=== PATIENT | female | born 1955 | race Caucasian/White ===

== ENCOUNTER 2017-04-13 21:03 | Inpatient (IN) | payer BC ==
[2017-04-13] MEDS ORDERED: HYDROmorphone 1 MG/ML Syringe IM ONE (21:29)
[2017-04-13] MEDS ORDERED: LORazepam 2 MG/ML MDV IVPUSH ONE (21:30)
--- NOTE | 2017-04-13 21:36 | EDM.PDOC ---
ED HPI GENERAL MEDICAL PROBLEM - General Chief Complaint: Lower Extremity Injury/Pain Stated Complaint: FALL/PAIN LT HIP Time Seen by Provider: 04/13/17 21:13 Source of Information: Reports: Patient History Limitations: Reports: No Limitations - History of Present Illness INITIAL COMMENTS - FREE TEXT/NARRATIVE: HISTORY AND PHYSICAL: History of present illness: [62-year-old female with past medical history of psoriasis no other medical problems now in the emergency department for evaluation of a left hip injury. Patient states she was walking and somehow she lost her balance. She fell the ground and injured her left hip. She is unable to range of motion her left leg because of pain. Denies headache injury neck pain chest injury or abdominal pain. No complaint regarding her right lower extremity and bilateral upper extremities. Review of systems: As per history of present illness and below otherwise all systems reviewed and negative. Past medical history: As per history of present illness and as reviewed below otherwise noncontributory. Surgical history: As per history of present illness and as reviewed below otherwise noncontributory. Social history: No reported history of drug or alcohol abuse. Family history: As per history of present illness and as reviewed below otherwise noncontributory. Physical exam: Anxious appearing older middle-aged female with left knee and hip flexed unwilling range of motion left leg. Tenderness of left hip distribution. Soft compartments neurovascularly intact distally. Nonfocal neurologic exam. Normocephalic/atraumatic nontender C-spine with normal painless range of motion. No chest wall tenderness. No spinal tenderness. Extremity bilateral upper STEMI's are negative. HEENT: Atraumatic, normocephalic, pupils reactive, negative for conjunctival pallor or scleral icterus, mucous membranes moist, throat clear, neck supple, nontender, trachea midline. Lungs: Clear to auscultation, breath sounds equal bilaterally, chest nontender. Heart: S1S2, regular, negative for clicks, rubs, or JVD. Abdomen: Soft, nondistended, nontender. Negative for masses or hepatosplenomegaly. Negative for costovertebral tenderness. Pelvis: Stable nontender. Genitourinary: Deferred. Rectal: Deferred. Extremities: Atraumatic, negative for cords or calf pain. Neurovascular unremarkable. Neuro: Awake, alert, oriented. Cranial nerves grossly unremarkable. Motor and sensory unremarkable throughout. Exam nonfocal. Diagnostics: [X-rays left hip and pelvis pending] X-ray left hip with femoral neck fracture. X-ray pelvis with no fracture of the pelvis but also visualizing left femoral neck fracture. Both interpreted by me Therapeutics: Dilaudid and Ativan administered for pain control and treatment of anxiety respectively Impression: [Left hip pain] Left hip fracture Plan: [Signs and symptoms consistent with left hip versus left femur fracture less likely pelvis injury. Analgesia and anxiolysis administered. Patient will be kept nothing by mouth. Will follow to ensure clinically effective pain control. X-rays pending] Definitive disposition and diagnosis as appropriate pending reevaluation and review of above. 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 History: Reports: None Neurological History: Reports: None Psychiatric History: Reports: None Endocrine/Metabolic History: Reports: None Hematologic History: Reports: None Immunologic History: Reports: None Oncologic (Cancer) History: Reports: None Dermatologic History: Reports: Psoriasis - Infectious Disease History Infectious Disease History: Reports: Chicken Pox, Measles, Mumps - Past Surgical History Head Surgeries/Procedures: Reports: None GI Surgical History: Reports: Cholecystectomy Female Surgical History: Reports: Hysterectomy Social & Family History - Family History Family Medical History: Noncontributory - Tobacco Use Smoking Status *Q: Never Smoker - Caffeine Use Caffeine Use: Reports: Coffee, Tea - Recreational Drug Use Recreational Drug Use: No Review of Systems - Review of Systems Review Of Systems: See Below (History of present illness) ED EXAM, GENERAL - Physical Exam Exam: See Below (History of present illness) Course - Vital Signs Last Recorded V/S: Last Vital Signs Temp 36.5 C 04/14/17 00:16 Pulse 80 04/14/17 00:16 Resp 16 04/14/17 00:16 BP 130/85 04/14/17 00:16 Pulse Ox 98 08/04/17 00:16 - Orders/Labs/Meds Orders: Active Orders 24 hr Category Date Time Status Hip Min 2V or 3V Lt [CR] Stat Exams 04/13/17 21:30 Taken Pelvis 1V or 2V [CR] Stat Exams 04/13/17 21:30 Ordered Meds: Medications Discontinued Medications Generic Name Dose Route Start Last Admin Trade Name Gastonq PRN Reason Stop Dose Admin Hydromorphone HCl 1 mg 04/13/17 21:29 04/13/17 22:25 Dilaudid IM 04/13/17 21:30 Not Given ONETIME ONE Hydromorphone HCl 1 mg 04/13/17 22:12 04/14/17 00:14 Dilaudid IVPUSH 04/13/17 22:13 1 mg ONETIME ONE Administration Hydromorphone HCl 1 mg 04/14/17 00:00 04/14/17 00:14 Dilaudid IVPUSH 04/14/17 00:01 Not Given ONETIME ONE Lorazepam 0.5 mg 04/13/17 21:30 04/13/17 22:03 Ativan IVPUSH 04/13/17 21:31 0.5 mg ONETIME ONE Administration Departure - Departure Time of Disposition: 00:30 Disposition: Admitted As Inpatient 65 Condition: Fair Clinical Impression: Closed left hip fracture - Discharge Information - My Orders Last 24 Hours: My Active Orders 04/13/17 21:30 Hip Min 2V or 3V Lt [CR] Stat Pelvis 1V or 2V [CR] Stat - Assessment/Plan Last 24 Hours: My Active Orders 04/13/17 21:30 Hip Min 2V or 3V Lt [CR] Stat Pelvis 1V or 2V [CR] Stat
[2017-04-13] MEDS: HYDROmorphone 1 MG/ML Syringe IVPUSH ONE (22:24)
[2017-04-14] MEDS: HYDROmorphone 1 MG/ML Syringe IVPUSH ONE (00:14)
--- NOTE | 2017-04-14 00:49 | PCM.CONS ---
H&P History of Present Illness - General Date of Service: 04/14/17 Admit Problem/Dx: Admission Diagnosis/Problem Admission Diagnosis/Problem Hip fracture requiring operative repair Source of Information: Patient, Family History Limitations: Reports: No Limitations - History of Present Illness Initial Comments - Free Text/Narative: 62 y/o female who tripped on curb coming out of restaurant earlier tonight. States she fell on left hip. C/o immediate pain and inability to WB. Denies other injuries, LOC. No previous h/o left hip pain. XR in ER show displaced left femoral neck fracture. Ortho consult obtained. Denies distal paralysis, paresthesias. Onset of Symptoms: Reports: Today Quality: Reports: Sharp Improves with: Reports: Immobilization Worsens with: Reports: Movement Associated Symptoms: Reports: No Other Symptoms left upper leg/hip Pain Score (Numeric/FACES): 10 - Related Data Allergies/Adverse Reactions: Allergies Allergy/AdvReac Type Severity Reaction Status Date / Time erythromycin base Allergy Shortness Verified 04/14/17 00:12 of Breath Penicillins Allergy Other Verified 04/13/17 21:24 Home Medications: Home Meds Ustekinumab [Stelara] 04/14/17 [History] Past Medical History HEENT History: Reports: None Cardiovascular History: Reports: None Respiratory History: Reports: None Gastrointestinal History: Reports: None Genitourinary History: Reports: None 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: Musculoskeletal History: Reports: None Neurological History: Reports: None Psychiatric History: Reports: None Endocrine/Metabolic History: Reports: None Hematologic History: Reports: None Immunologic History: Reports: None Oncologic (Cancer) History: Reports: None Dermatologic History: Reports: Psoriasis - Infectious Disease History Infectious Disease History: Reports: Chicken Pox, Measles, Mumps - Past Surgical History Head Surgeries/Procedures: Reports: None GI Surgical History: Reports: Cholecystectomy Female Surgical History: Reports: Hysterectomy Musculoskeletal Surgical History: Reports: Other (See Below) (Bunion surgery) Social & Family History - Family History Family Medical History: Noncontributory - Tobacco Use Smoking Status *Q: Never Smoker - Caffeine Use Caffeine Use: Reports: Coffee, Tea - Alcohol Use Alcohol Use History: Yes Alcohol Use Frequency: Socially - Recreational Drug Use Recreational Drug Use: No H&P Review of Systems - Review of Systems: Review Of Systems: See Below General: Reports: No Symptoms HEENT: Reports: No Symptoms Pulmonary: Reports: No Symptoms Cardiovascular: Reports: No Symptoms Gastrointestinal: Reports: No Symptoms Genitourinary: Reports: No Symptoms Musculoskeletal: Reports: Joint Pain Skin: Reports: No Symptoms Psychiatric: Reports: No Symptoms Neurological: Reports: No Symptoms Hematologic/Lymphatic: Reports: No Symptoms Immunologic: Reports: No Symptoms Exam - Exam Exam: See Below - Vital Signs Vital Signs: Last Vital Signs Temp 97.7 F 04/14/17 00:16 Pulse 80 04/14/17 00:16 Resp 16 04/14/17 00:16 BP 130/85 04/14/17 00:16 Pulse Ox 98 04/14/17 00:16 Weight: 65.771 kg - Exam General: Alert, Oriented, 4 HEENT: Conjunctiva Clear, Hearing Intact, Nares Patent Neck: Supple, Trachea Midline, 2 Lungs: Normal Respiratory Effort Cardiovascular: Regular Rate GI/Abdominal Exam: Soft Peripheral Pulses: 2+: Posterior Tibial (L), Posterior Tibial (R), Dorsalis Pedis (L), Dorsalis Pedis (R) Skin: Warm, Dry, Intact Neuro Extensive - Mental Status: Alert, Oriented x3, Normal Mood/Affect, Normal Cognition Psychiatric: Alert, Normal Affect, Normal Mood Physical Exam Comments:: Exam of LLE shows it to be shortened and ER. C/o pain with movement of hip. No TTP around knee or ankle. AT/EHL/gastroc 5/5. Sensation intact. DP 2+. - Patient Data Imaging Impressions Last 24 hrs: Xray of pelvis/left hip reviewed. Shows displaced fracture of left femoral neck. Consult PN Assessment/Plan Problem List Initiated/Reviewed/Updated: Yes Plan: 1. Admit to hospitalist service for preop evaluation 2. recommend L hip hemiarthroplasty: Procedure and postoperative course d/w patient. Risks of procedure d/w patient which includes, but not limited to, infection, n/v injury, blood clots, dislocation, need for future surgery, transfusion, and anesthetic complications. Patient agrees to proceed. Will plan to do Monday. 3. patient originally from [place], here on vacation in . Plans to travel to [place] after discharge.
[2017-04-14] MEDS ORDERED: Morphine 2 MG/ML Syringe ONE (00:50)
[2017-04-14] MEDS ORDERED: Clindamycin Phosphate in D5W 600 MG in Premix Bag 50 BAG IV ONE ×4 (01:30→13:00)
[2017-04-14] MEDS: Lactated Ringers 1,000 ML IV SCH ×3 (01:49→23:48)
[2017-04-14 01:52] LABS: CHLORIDE,CL 104 mmol/L (98-110); SODIUM,NA 139 mmol/L (136-146)
[2017-04-14] MEDS: Morphine 4 MG/ML Syringe IVPUSH PRN ×4 (01:53→15:09)
--- NOTE | 2017-04-14 03:16 | PCM.HP ---
H&P History of Present Illness - General Date of Service: 04/14/17 Admit Problem/Dx: Admission Diagnosis/Problem Admission Diagnosis/Problem Hip fracture requiring operative repair Source of Information: Patient - History of Present Illness Initial Comments - Free Text/Narative: 62 year old female left a restaurant tonight, and when walking, came on a transition from gravel to sidewalk. Her left foot was hung up in the crevice where the concrete began, and it tripped her. She was unable to stand and was brought to the ER where she was found to have a left hip fracture. She has a history of taking Fosamax from 1996 to 2006 when she was taken off of it when the danger of bone brittleness from extended use was being discovered. She has a history of using Stelara for psoriasis, which is an immunosuppressant, and her last dose was in December and her next dose is due in June. Aside from the psoriasis, she has been healthy and physically active. She has travelled here from [place] to visit [facility] while on her way with her to her daughter's home in [place] where they are supposed to care for her grandson while her daughter is gone on a trip. Onset of Symptoms: Reports: Today, Sudden Location: Reports: Lower Extremity, Left Quality: Reports: Sharp, Stabbing Severity: Severe Improves with: Reports: Rest Worsens with: Reports: Movement Associated Symptoms: Reports: No Other Symptoms left upper leg/hip Pain Score (Numeric/FACES): 8 - Related Data Allergies/Adverse Reactions: Allergies Allergy/AdvReac Type Severity Reaction Status Date / Time erythromycin base Allergy Shortness Verified 04/14/17 00:12 of Breath Penicillins Allergy Other Verified 04/13/17 21:24 Home Medications: Home Meds Ustekinumab [Stelara] 04/14/17 [History] Past Medical History HEENT History: Reports: Impaired Vision Cardiovascular History: Reports: None Respiratory History: Reports: None Gastrointestinal History: Reports: Cholelithiasis Genitourinary History: Reports: None 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: Musculoskeletal History: Reports: Osteoporosis Neurological History: Reports: None Psychiatric History: Reports: None Endocrine/Metabolic History: Reports: Other (See Below) (Prediabetes) Hematologic History: Reports: None Immunologic History: Reports: Immunosuppression, Other (See Below) (On Stelara, an interleukin 12 and 23 antagonist.) Oncologic (Cancer) History: Reports: None Dermatologic History: Reports: Psoriasis - Infectious Disease History Infectious Disease History: Reports: Chicken Pox, Measles, Mumps - Past Surgical History Head Surgeries/Procedures: Reports: None GI Surgical History: Reports: Cholecystectomy, Colostomy, EGD Female Surgical History: Reports: Hysterectomy Musculoskeletal Surgical History: Reports: Other (See Below) Dermatological Surgical History: Reports: None Social & Family History - Family History Family Medical History: Noncontributory - Tobacco Use Smoking Status *Q: Never Smoker Second Hand Smoke Exposure: No - Caffeine Use Caffeine Use: Reports: Coffee, Tea - Alcohol Use Alcohol Use History: Yes Days Per Week of Alcohol Use: 7 Number of Drinks Per Day: 1 Total Drinks Per Week: 7 Date of Last Drink: 04/13/17 Time of Last Drink: 19:30 - Recreational Drug Use Recreational Drug Use: No - Living Situation & Occupation Living situation: Reports: , with Spouse Occupation: Retired Social History Comment: Lives in [facility], [place] of [place] H&P Review of Systems - Review of Systems: Review Of Systems: See Below General: Reports: No Symptoms HEENT: Reports: No Symptoms Pulmonary: Reports: No Symptoms Cardiovascular: Reports: No Symptoms Gastrointestinal: Reports: No Symptoms Genitourinary: Reports: No Symptoms Musculoskeletal: Reports: Other (Left hip pain) Skin: Reports: No Symptoms, Other (History of psoriasis with good response to Stelara) Psychiatric: Reports: No Symptoms Neurological: Reports: No Symptoms Hematologic/Lymphatic: Reports: No Symptoms Immunologic: Reports: No Symptoms Exam - Exam Exam: See Below - Vital Signs Vital Signs: Last Vital Signs Temp 36.2 C 04/14/17 01:20 Pulse 93 04/14/17 01:20 Resp 18 04/14/17 01:20 BP 186/85 H 04/14/17 01:20 Pulse Ox 99 04/14/17 01:20 Weight: 66.5 kg - Exam General: Alert, Oriented HEENT: Conjunctiva Clear, EACs Clear, EOMI, Hearing Intact, Mucosa Moist & [place] , Nares Patent, Normal Nasal Septum, Posterior Pharynx Clear, Pupils Equal, Pupils Reactive Neck: Supple, Trachea Midline Lungs: Clear to Auscultation, Normal Respiratory Effort Cardiovascular: Regular Rate, Regular Rhythm, Normal S1, Normal S2 GI/Abdominal Exam: Normal Bowel Sounds, Soft, Non-Tender, No Organomegaly, No Distention, No Mass, Pelvis Stable Back Exam: Normal Inspection Extremities: No Pedal Edema, Normal Capillary Refill, Leg Pain, Other (Left foot turns in, abnormally. Left hip very tender. Normal PT and DP pulses bilaterally) Peripheral Pulses: 2+: Posterior Tibial (L), Posterior Tibial (R), Dorsalis Pedis (L), Dorsalis Pedis (R) Skin: Warm, Dry, Intact Neurological: Cranial Nerves Intact, Normal Speech, Normal Tone. No: Focal Deficit Neuro Extensive - Mental Status: Alert, Oriented x3, Normal Mood/Affect, Normal Cognition, Memory Intact - Patient Data Lab Results Last 24 hrs: Laboratory Results - last 24 hr 04/14/17 04/14/17 04/14/17 Range/Units 01:24 01:24 01:24 WBC 17.05 H (4.0-11.0) K/uL RBC 4.83 (4.30-5.90) M/uL Hgb 14.5 (12.0-16.0) g/dL Hct 42.5 (36.0-46.0) % MCV 88.0 (80.0-98.0) fL MCH 30.0 (27.0-32.0) pg MCHC 34.1 (31.0-37.0) g/dL RDW Std Deviation 43.1 (28.0-62.0) fl RDW Coeff of Lachelle 14 (11.0-15.0) % Plt Count 238 (150-400) K/uL MPV 9.50 (7.40-12.00) fL Add Manual Diff YES Neutrophils % (Manual) 68 (48.0-80.0) % Band Neutrophils % 6 % Lymphocytes % (Manual) 23 (16.0-40.0) % Monocytes % (Manual) 3 (0.0-15.0) % Nucleated RBC % 0.0 /100WBC Absolute Seg Neuts 11.6 Band Neutrophils # 1.0 Lymphocytes # (Manual) 3.9 Monocytes # (Manual) 0.5 Nucleated RBCs # 0 K/uL INR 0.98 (0.86-1.11) Sodium (136-146) mmol/L Potassium (3.5-5.1) mmol/L Chloride (98-110) mmol/L Carbon Dioxide (21-31) mmol/L BUN (6.0-23.0) mg/dL Creatinine (0.6-1.5) mg/dL Est Cr Clr Drug Dosing mL/min Estimated GFR (MDRD) ml/min Glucose (60-110) mg/dL Calcium (8.8-10.8) mg/dL Blood Type A POSITIVE Antibody Screen NEGATIVE 04/14/17 Range/Units 01:24 WBC (4.0-11.0) K/uL RBC (4.30-5.90) M/uL Hgb (12.0-16.0) g/dL Hct (36.0-46.0) % MCV (80.0-98.0) fL MCH (27.0-32.0) pg MCHC (31.0-37.0) g/dL RDW Std Deviation (28.0-62.0) fl RDW Coeff of Lachelle (11.0-15.0) % Plt Count (150-400) K/uL MPV (7.40-12.00) fL Add Manual Diff Neutrophils % (Manual) (48.0-80.0) % Band Neutrophils % % Lymphocytes % (Manual) (16.0-40.0) % Monocytes % (Manual) (0.0-15.0) % Nucleated RBC % /100WBC Absolute Seg Neuts Band Neutrophils # Lymphocytes # (Manual) Monocytes # (Manual) Nucleated RBCs # K/uL INR (0.86-1.11) Sodium 139 (136-146) mmol/L Potassium 3.8 (3.5-5.1) mmol/L Chloride 104 (98-110) mmol/L Carbon Dioxide 24 (21-31) mmol/L BUN 13 (6.0-23.0) mg/dL Creatinine 0.8 (0.6-1.5) mg/dL Est Cr Clr Drug Dosing 62.15 mL/min Estimated GFR (MDRD) > 60.0 ml/min Glucose 125 H (60-110) mg/dL Calcium 9.2 (8.8-10.8) mg/dL Blood Type Antibody Screen Result Diagrams: 04/14/17 01:24 04/14/17 01:24 EKG INTERPRETATION EKG Date: 04/14/17 Rhythm: NSR [place]: Normal P-Wave: Present QRS: Normal ST-T: Normal QT: Normal Comparison: NA - No Prior EKG EKG Interpretation Comments: Normal sinus rhythm with no ST changes *Q Meaningful Use (ADM) - VTE *Q VTE Criteria *Q: - Stroke *Q Stroke Criteria *Q: - AMI *Q AMI Criteria *Q: - Problem List (1) Immunosuppressed due to chemotherapy SNOMED Code(s): 623321252 ICD Code: Z79.899 - OTHER SHELTER (CURRENT) DRUG THERAPY Status: Acute Priority: Medium Current Visit: Yes (2) Elevated WBC count SNOMED Code(s): 775728201, 097907418 ICD Code: D72.829 - ELEVATED WHITE BLOOD CELL COUNT, UNSPECIFIED Status: Acute Priority: Medium Current Visit: Yes Qualifiers: Leukocytosis type: leukemoid reaction Qualified Code(s): D72.823 - Leukemoid reaction (3) Closed left hip fracture SNOMED Code(s): 019371739 ICD Code: S72.002A - FRACTURE OF UNSP PART OF NECK OF LEFT FEMUR, INIT Status: Acute Priority: High Current Visit: Yes Onset Date: ~04/13/17 Qualifiers: Encounter type: initial encounter Qualified Code(s): S72.002A - Fracture of unspecified part of neck of left femur, initial encounter for closed fracture Problem List Initiated/Reviewed/Updated: Yes Orders Last 24hrs: Active Orders 24 hr Category Date Time Status Antiembolic Devices [RC] PER UNIT ROUTINE Care 04/14/17 00:56 Active Communication Order [RC] ROUTINE Care 04/14/17 00:54 Active Communication Order [RC] ROUTINE Care 04/14/17 00:56 Active Communication Order [RC] ROUTINE Care 04/14/17 01:19 Active EKG 12 Lead [EKG Documentation Completion] [RC] ROUTINE Care 04/14/17 00:55 Active Jara Catheter Insertion [Insert Urinary Catheter] [OM. Care 04/14/17 01:00 Ordered PC] Q24H Intake and Output [RC] Q12H Care 04/14/17 00:54 Active Oxygen Therapy [RC] PRN Care 04/14/17 00:52 Active Urinary Catheter Assessment [RC] Q4H Care 04/14/17 01:00 Active Vital Signs [RC] Q4H Care 04/14/17 00:50 Active Nothing per Oral Now Diet [DIET] Diet 04/14/17 Breakfast Active Chest 1V Frontal [CR] Routine Exams 04/14/17 00:58 Ordered CBC WITH MANUAL DIFF [HEME] Routine Lab 04/14/17 06:00 Ordered Clindamycin Phosphate in D5W [Cleocin in D5W] 600 mg Med 04/14/17 13:00 Active Premix Bag 50 bag IV ONCALL Lactated Ringers [Ringers, Lactated] 1,000 ml Med 04/14/17 01:00 Active IV ASDIRECTED Morphine Med 04/14/17 00:52 Active 1 - 3 mg IVPUSH Q3H PRN Ondansetron [Zofran] Med 04/14/17 00:52 Active 4 mg IVPUSH Q8H PRN Antiembolic Hose [OM.PC] Routine Oth 04/14/17 00:54 Ordered Obtain Home Medication List [OM.PC] Routine Oth 04/14/17 00:54 Ordered Sequential Compression Device [OM.PC] Routine Oth 04/14/17 00:54 Ordered Resuscitation Status Routine Resus Stat 04/14/17 00:50 Ordered Medication Orders Lactated Ringer's (Ringers, Lactated) 1,000 mls @ 125 mls/hr IV ASDIRECTED SHERRIE Last Admin: 04/14/17 01:49 Dose: 125 mls/hr Clindamycin Phosphate 600 mg/ (Premix) 50 mls @ 100 mls/hr IV ONCALL ONE Stop: 04/14/17 13:29 Morphine Sulfate (Morphine) 1 - 3 mg IVPUSH Q3H PRN PRN Reason: Pain Last Admin: 04/14/17 01:53 Dose: 2 mg Ondansetron HCl (Zofran) 4 mg IVPUSH Q8H PRN PRN Reason: NAUSEA/VOMITING Assessment/Plan Comment:: this patient needs her left broken hip pinned. She has an elevated WBC which seems to be more of a leukemoid reaction potentially from the stress of her fracture, but side effect from her Stelara needs to be ruled out. A discussion with the pharmacist needs to occur regarding any potential immunosuppressive effects of her psoriasis treatment and whether it influences WBC's. From a cardiac standpoint, she is low risk for her surgery. This patient will receive VTE prophy.
--- NOTE | 2017-04-14 08:52 | CR ---
EXAMINATION: Portable chest radiograph. HISTORY: Pre-op. FINDINGS: The trachea is midline. The cardiomediastinal silhouette is within normal limits. No pulmonary infil trates, effusions or pneumothorax. Mild interstitial prominence. Osseous structures appear unremarkable. IMPRESSION: No acute cardiopulmonary process.
--- NOTE | 2017-04-14 10:09 | PCM.PREANE ---
Preanesthetic Assessment - Procedure Proposed Procedure: Left hip fracture ORIF - Anesthesia/Transfusion/Family Hx Anesthesia History: Prior Anesthesia Without Reaction Family History of Anesthesia Reaction: No Transfusion History: No Prior Transfusion(s) Intubation History: Unknown Additional History: Q3 month immunosuppressant for psoriasis - Review of Systems General: Other (pain in left hip) Pulmonary: No Symptoms Cardiovascular: No Symptoms Gastrointestinal: No Symptoms Neurological: Other (pain in left hip due to fracture) - Physical Assessment O2 Sat by Pulse Oximetry: 91 Respiratory Rate: 22 Vital Signs: Last Vital Signs Temp 98.4 F 04/14/17 08:00 Pulse 87 04/14/17 08:00 Resp 22 H 04/14/17 08:00 BP 122/71 04/14/17 08:00 Pulse Ox 91 L 04/14/17 08:00 Height: 5 ft 4 in Weight: 146 lb 9.718 oz ASA Class: 2E Mental Status: Alert & Oriented x3 Airway Class: Mallampati = 1 Dentition: Reports: Normal Dentition Thyro-Mental Finger Breadths: 3 Mouth Opening Finger Breadths: 3 ROM/Head Extension: Full Lungs: Clear to Auscultation, Normal Respiratory Effort Cardiovascular: Regular Rate, Regular Rhythm, Murmurs (LSB holosystolic) - Lab Values: Laboratory Last Values WBC 11.50 K/uL (4.0-11.0) H 04/14/17 06:25 RBC 4.58 M/uL (4.30-5.90) 04/14/17 06:25 Hgb 13.6 g/dL (12.0-16.0) 04/14/17 06:25 Hct 40.5 % (36.0-46.0) 04/14/17 06:25 MCV 88.4 fL (80.0-98.0) 04/14/17 06:25 MCH 29.7 pg (27.0-32.0) 04/14/17 06:25 MCHC 33.6 g/dL (31.0-37.0) 04/14/17 06:25 RDW Std Deviation 43.6 fl (28.0-62.0) 04/14/17 06:25 RDW Coeff of Lachelle 14 % (11.0-15.0) 04/14/17 06:25 Plt Count 215 K/uL (150-400) 04/14/17 06:25 MPV 9.30 fL (7.40-12.00) 04/14/17 06:25 Add Manual Diff YES 04/14/17 01:24 Neutrophils % (Manual) 69 % (48.0-80.0) 04/14/17 06:25 Band Neutrophils % 4 % 04/14/17 06:25 Lymphocytes % (Manual) 21 % (16.0-40.0) 04/14/17 06:25 Monocytes % (Manual) 6 % (0.0-15.0) 04/14/17 06:25 Nucleated RBC % 0.0 /100WBC 04/14/17 06:25 Absolute Seg Neuts 7.9 04/14/17 06:25 Band Neutrophils # 0.5 04/14/17 06:25 Lymphocytes # (Manual) 2.4 04/14/17 06:25 Monocytes # (Manual) 0.7 04/14/17 06:25 Nucleated RBCs # 0 K/uL 04/14/17 01:24 INR 0.98 (0.86-1.11) 04/14/17 01:24 Sodium 139 mmol/L (136-146) 04/14/17 01:24 Potassium 3.8 mmol/L (3.5-5.1) 04/14/17 01:24 Chloride 104 mmol/L (98-110) 04/14/17 01:24 Carbon Dioxide 24 mmol/L (21-31) 04/14/17 01:24 BUN 13 mg/dL (6.0-23.0) 04/14/17 01:24 Creatinine 0.8 mg/dL (0.6-1.5) 04/14/17 01:24 Est Cr Clr Drug Dosing 62.15 mL/min 04/14/17 01:24 Estimated GFR (MDRD) > 60.0 ml/min 04/14/17 01:24 Glucose 125 mg/dL (60-110) H 04/14/17 01:24 Calcium 9.2 mg/dL (8.8-10.8) 04/14/17 01:24 Blood Type A POSITIVE 04/14/17 01:24 Antibody Screen NEGATIVE 04/14/17 01:24 - Allergies Allergies/Adverse Reactions: Allergies Allergy/AdvReac Type Severity Reaction Status Date / Time erythromycin base Allergy Shortness Verified 04/14/17 00:12 of Breath Penicillins Allergy Other Verified 04/13/17 21:24 - Blood Blood Available: Yes Product(s) Available: PRBC (T and S) - Anesthesia Plan Pre-Op Medication Ordered: None - Acknowledgements Anesthesia Type Planned: General Anesthesia (consider regional as combo anesthetic), Spinal Pt an Appropriate Candidate for the Planned Anesthesia: Yes Alternatives and Risks of Anesthesia Discussed w Pt/Guardian: Yes Pt/Guardian Understands and Agrees with Anesthesia Plan: Yes Additional Comments: present with interview and exam. PreAnesthesia Questionnaire HEENT History: Reports: Impaired Vision Cardiovascular History: Reports: None Respiratory History: Reports: None Gastrointestinal History: Reports: Cholelithiasis Genitourinary History: Reports: None [employer]OR [employer]/STA[employer] MIDWIFE History: Reports: Musculoskeletal History: Reports: Osteoporosis Neurological History: Reports: None Psychiatric History: Reports: None Endocrine/Metabolic History: Reports: Other (See Below) (Prediabetes) Hematologic History: Reports: None Immunologic History: Reports: Immunosuppression, Other (See Below) (On Stelara, an interleukin 12 and 23 antagonist.) Oncologic (Cancer) History: Reports: None Dermatologic History: Reports: Psoriasis - Infectious Disease History Infectious Disease History: Reports: Chicken Pox, Measles, Mumps - Past Surgical History Head Surgeries/Procedures: Reports: None GI Surgical History: Reports: Cholecystectomy, Colostomy, EGD Female Surgical History: Reports: Hysterectomy Musculoskeletal Surgical History: Reports: Other (See Below) Dermatological Surgical History: Reports: None - SUBSTANCE USE Smoking Status *Q: Never Smoker Second Hand Smoke Exposure: No Days Per Week of Alcohol Use: 7 Number of Drinks Per Day: 1 Total Drinks Per Week: 7 Date of Last Drink: 04/13/17 Time of Last Drink: 19:30 Recreational Drug Use History: No - HOME MEDS Home Medications: Home Meds Ustekinumab [Stelara] 04/14/17 [History] - CURRENT (IN HOUSE) MEDS Current Meds: Current Medications Lactated Ringer's (Ringers, Lactated) 1,000 mls @ 125 mls/hr IV ASDIRECTED SHERRIE Last Admin: 04/14/17 01:49 Dose: 125 mls/hr Clindamycin Phosphate 600 mg/ (Premix) 50 mls @ 100 mls/hr IV ONCALL ONE Stop: 04/14/17 13:29 Morphine Sulfate (Morphine) 1 - 3 mg IVPUSH Q3H PRN PRN Reason: Pain Last Admin: 04/14/17 07:53 Dose: 3 mg Ondansetron HCl (Zofran) 4 mg IVPUSH Q8H PRN PRN Reason: NAUSEA/VOMITING Discontinued Medications Hydromorphone HCl (Dilaudid) 1 mg IM ONETIME ONE Stop: 04/13/17 21:30 Last Admin: 04/13/17 22:25 Dose: Not Given Hydromorphone HCl (Dilaudid) 1 mg IVPUSH ONETIME ONE Stop: 04/13/17 22:13 Last Admin: 04/14/17 00:14 Dose: 1 mg Hydromorphone HCl (Dilaudid) 1 mg IVPUSH ONETIME ONE Stop: 04/14/17 00:01 Last Admin: 04/14/17 00:14 Dose: Not Given Clindamycin Phosphate 600 mg/ (Premix) 50 mls @ 100 mls/hr IV ONETIME ONE Stop: 04/14/17 01:59 Last Admin: 04/14/17 03:21 Dose: Not Given Lorazepam (Ativan) 0.5 mg IVPUSH ONETIME ONE Stop: 04/13/17 21:31 Last Admin: 04/13/17 22:03 Dose: 0.5 mg Morphine Sulfate (Morphine) Confirm Administered Dose 2 mg .ROUTE .STK-MED ONE Stop: 04/14/17 00:51 Last Admin: 04/14/17 00:53 Dose: 2 mg
[2017-04-14] MEDS ORDERED: Lidocaine 2% 5 ML SDV ONE (10:16)
[2017-04-14] MEDS ORDERED: Midazolam 1 MG/ML 2 ML SDV ONE (10:16)
[2017-04-14] MEDS ORDERED: fentaNYL 100 MCG/2 ML SDV ONE (10:16)
[2017-04-14] MEDS ORDERED: fentaNYL 250 MCG/5 ML SDV ONE (10:16)
[2017-04-14] MEDS ORDERED: Propofol 200 MG/20 ML SDV ONE ×2 (10:16→12:00)
[2017-04-14] MEDS ORDERED: Ondansetron 4 MG/2 ML SDV ONE (10:18)
[2017-04-14] MEDS ORDERED: Neostigmine Methylsulfate 1 MG/ML 5 ML Syringe ONE (10:18)
[2017-04-14] MEDS ORDERED: Rocuronium 10 MG/ML 10 ML Syringe ONE (10:18)
[2017-04-14] MEDS ORDERED: ePHEDrine 50 MG/ML SDV ONE ×2 (10:49→12:21)
[2017-04-14] MEDS ORDERED: HYDROmorphone 2 MG/ML Syringe ONE (11:12)
[2017-04-14] MEDS ORDERED: fentaNYL 100 MCG/2 ML SDV IVPUSH PRN ×2 (11:16→13:24)
[2017-04-14] MEDS ORDERED: Sugammadex Sodium 200 MG/2 ML VIAL ONE ×2 (11:21→11:23)
[2017-04-14] MEDS ORDERED: HYDROmorphone 2 MG/ML Syringe IVPUSH ONE ×2 (11:45)
--- NOTE | 2017-04-14 12:44 | PCM.PN ---
[id number] Dx/Problem (Free Text): Admission Diagnosis/Problem Admission Diagnosis/Problem Hip fracture requiring operative repair Subjective Update: Patient is doing well. She complains of left hip pain but is receiving morphine IV every 1-3 hours as needed. She denies any other acute concerns including chest pain, palpitations, shortness of breath, wheezing, cough, nausea, vomiting. Dr. Bernal, orthopedic surgeon is taking the patient to surgery this morning for a left hip hemiarthroplasty. Patient is in agreement to this. She understands that with her current medication of Stelara that she is at increased risk of infection. Functional Status: Reports: Pain Controlled - Review of Systems General: Reports: No Symptoms HEENT: Reports: No Symptoms Pulmonary: Reports: No Symptoms Cardiovascular: Reports: No Symptoms Gastrointestinal: Reports: No Symptoms Genitourinary: Reports: No Symptoms Musculoskeletal: Reports: Other (Left hip pain secondary to left hip fracture) Skin: Reports: No Symptoms Neurological: Reports: No Symptoms Psychiatric: Reports: No Symptoms - Patient Data Vitals - Most Recent: Last Vital Signs Temp 98.4 F 04/14/17 08:00 Pulse 87 04/14/17 08:00 Resp 22 H 04/14/17 10:11 BP 122/71 04/14/17 08:00 Pulse Ox 91 L 04/14/17 10:11 Weight - Most Recent: 66.5 kg I&O - Last 24 Hours: Intake & Output 04/13/17 04/14/17 04/14/17 22:59 06:59 14:59 Intake Total 50 1000 Output Total 250 Balance -200 1000 Lab Results Last 24 Hours: Laboratory Results - last 24 hr 04/14/17 04/14/17 04/14/17 Range/Units 01:24 01:24 01:24 WBC 17.05 H (4.0-11.0) K/uL RBC 4.83 (4.30-5.90) M/uL Hgb 14.5 (12.0-16.0) g/dL Hct 42.5 (36.0-46.0) % MCV 88.0 (80.0-98.0) fL MCH 30.0 (27.0-32.0) pg MCHC 34.1 (31.0-37.0) g/dL RDW Std Deviation 43.1 (28.0-62.0) fl RDW Coeff of Lachelle 14 (11.0-15.0) % Plt Count 238 (150-400) K/uL MPV 9.50 (7.40-12.00) fL Add Manual Diff YES Neutrophils % (Manual) 68 (48.0-80.0) % Band Neutrophils % 6 % Lymphocytes % (Manual) 23 (16.0-40.0) % Monocytes % (Manual) 3 (0.0-15.0) % Nucleated RBC % 0.0 /100WBC Absolute Seg Neuts 11.6 Band Neutrophils # 1.0 Lymphocytes # (Manual) 3.9 Monocytes # (Manual) 0.5 Nucleated RBCs # 0 K/uL INR 0.98 (0.86-1.11) Sodium (136-146) mmol/L Potassium (3.5-5.1) mmol/L Chloride (98-110) mmol/L Carbon Dioxide (21-31) mmol/L BUN (6.0-23.0) mg/dL Creatinine (0.6-1.5) mg/dL Est Cr Clr Drug Dosing mL/min Estimated GFR (MDRD) ml/min Glucose (60-110) mg/dL Calcium (8.8-10.8) mg/dL Blood Type A POSITIVE Antibody Screen NEGATIVE 04/14/17 04/14/17 Range/Units 01:24 06:25 WBC 11.50 H (4.0-11.0) K/uL RBC 4.58 (4.30-5.90) M/uL Hgb 13.6 (12.0-16.0) g/dL Hct 40.5 (36.0-46.0) % MCV 88.4 (80.0-98.0) fL MCH 29.7 (27.0-32.0) pg MCHC 33.6 (31.0-37.0) g/dL RDW Std Deviation 43.6 (28.0-62.0) fl RDW Coeff of Lachelle 14 (11.0-15.0) % Plt Count 215 (150-400) K/uL MPV 9.30 (7.40-12.00) fL Add Manual Diff Neutrophils % (Manual) 69 (48.0-80.0) % Band Neutrophils % 4 % Lymphocytes % (Manual) 21 (16.0-40.0) % Monocytes % (Manual) 6 (0.0-15.0) % Nucleated RBC % 0.0 /100WBC Absolute Seg Neuts 7.9 Band Neutrophils # 0.5 Lymphocytes # (Manual) 2.4 Monocytes # (Manual) 0.7 Nucleated RBCs # K/uL INR (0.86-1.11) Sodium 139 (136-146) mmol/L Potassium 3.8 (3.5-5.1) mmol/L Chloride 104 (98-110) mmol/L Carbon Dioxide 24 (21-31) mmol/L BUN 13 (6.0-23.0) mg/dL Creatinine 0.8 (0.6-1.5) mg/dL Est Cr Clr Drug Dosing 62.15 mL/min Estimated GFR (MDRD) > 60.0 ml/min Glucose 125 H (60-110) mg/dL Calcium 9.2 (8.8-10.8) mg/dL Blood Type Antibody Screen Med Orders - Current: Current Medications Fentanyl (Sublimaze) 50 mcg IVPUSH Q5M PRN PRN Reason: Pain (severe 7-10) Stop: 04/15/17 11:16 Lactated Ringer's (Ringers, Lactated) 1,000 mls @ 125 mls/hr IV ASDIRECTED SHERRIE Last Admin: 04/14/17 10:05 Dose: 125 mls/hr Clindamycin Phosphate 600 mg/ (Premix) 50 mls @ 100 mls/hr IV ONCALL ONE Stop: 04/14/17 13:29 Morphine Sulfate (Morphine) 1 - 3 mg IVPUSH Q3H PRN PRN Reason: Pain Last Admin: 04/14/17 07:53 Dose: 3 mg Ondansetron HCl (Zofran) 4 mg IVPUSH Q8H PRN PRN Reason: NAUSEA/VOMITING Discontinued Medications Ephedrine Sulfate (Ephedrine Sulfate) Confirm Administered Dose 50 mg .ROUTE .STK-MED ONE Stop: 04/14/17 10:50 Ephedrine Sulfate (Ephedrine Sulfate) Confirm Administered Dose 50 mg .ROUTE .STK-MED ONE Stop: 04/14/17 12:22 Fentanyl (Sublimaze) Confirm Administered Dose 100 mcg .ROUTE .STK-MED ONE Stop: 04/14/17 10:17 Fentanyl (Sublimaze) Confirm Administered Dose 250 mcg .ROUTE .STK-MED ONE Stop: 04/14/17 10:17 Glycopyrrolate () Confirm Administered Dose 1 mg .ROUTE .STK-MED ONE Stop: 04/14/17 10:19 Hydromorphone HCl (Dilaudid) 1 mg IM ONETIME ONE Stop: 04/13/17 21:30 Last Admin: 04/13/17 22:25 Dose: Not Given Hydromorphone HCl (Dilaudid) 1 mg IVPUSH ONETIME ONE Stop: 04/13/17 22:13 Last Admin: 04/14/17 00:14 Dose: 1 mg Hydromorphone HCl (Dilaudid) 1 mg IVPUSH ONETIME ONE Stop: 04/14/17 00:01 Last Admin: 04/14/17 00:14 Dose: Not Given Hydromorphone HCl (Dilaudid) Confirm Administered Dose 2 mg .ROUTE .STK-MED ONE Stop: 04/14/17 11:13 Hydromorphone HCl (Dilaudid) 0 mg IVPUSH ONETIME ONE Stop: 04/14/17 11:46 Clindamycin Phosphate 600 mg/ (Premix) 50 mls @ 100 mls/hr IV ONETIME ONE Stop: 04/14/17 01:59 Last Admin: 04/14/17 03:21 Dose: Not Given Lidocaine (Xylocaine-Mpf 2%) Confirm Administered Dose 10 ml .ROUTE .STK-MED ONE Stop: 04/14/17 10:17 Lorazepam (Ativan) 0.5 mg IVPUSH ONETIME ONE Stop: 04/13/17 21:31 Last Admin: 04/13/17 22:03 Dose: 0.5 mg Midazolam HCl (Versed 1 Mg/Ml) Confirm Administered Dose 2 mg .ROUTE .STK-MED ONE Stop: 04/14/17 10:17 Morphine Sulfate (Morphine) Confirm Administered Dose 2 mg .ROUTE .STK-MED ONE Stop: 04/14/17 00:51 Last Admin: 04/14/17 00:53 Dose: 2 mg Neostigmine Methylsulfate (Neostigmine) Confirm Administered Dose 5 mg .ROUTE .STK-MED ONE Stop: 04/14/17 10:19 Ondansetron HCl (Zofran) Confirm Administered Dose 4 mg .ROUTE .STK-MED ONE Stop: 04/14/17 10:19 Propofol (Diprivan 20 Ml) Confirm Administered Dose 400 mg .ROUTE .STK-MED ONE Stop: 04/14/17 10:17 Propofol (Diprivan 20 Ml) Confirm Administered Dose 400 mg .ROUTE .STK-MED ONE Stop: 04/14/17 12:01 Rocuronium [place] (Zemuron) Confirm Administered Dose 100 mg .ROUTE .STK-MED ONE Stop: 04/14/17 10:19 - Exam Quality Assessment: DVT Prophylaxis (SCD to the right lower extremity.) General: Alert, Oriented, Cooperative, No Acute Distress Lungs: Clear to Auscultation, Normal Respiratory Effort Cardiovascular: Regular Rate, Regular Rhythm GI/Abdominal Exam: Normal Bowel Sounds, Soft, Non-Tender, No Organomegaly, No Distention, No Abnormal Bruit, No Mass, Pelvis Stable Extremities: Other (Tenderness with palpation of the left hip. There is no peripheral edema appreciated.) Peripheral Pulses: 2+: Radial (L), Radial (R), Posterior Tibial (L), Posterior Tibial (R) Skin: Warm, Dry, Intact Wound/Incisions: Healing Well Neurological: No New Focal Deficit Psy/Mental Status: Alert, Normal Affect, Normal Mood - Problem List & Annotations (1) Closed left hip fracture SNOMED Code(s): 484724402 Code(s): S72.002A - FRACTURE OF UNSP PART OF NECK OF LEFT FEMUR, INIT Status: Acute Priority: High Onset Date: ~04/13/17 Qualifiers: Encounter type: initial encounter Qualified Code(s): S72.002A - Fracture of unspecified part of neck of left femur, initial encounter for closed fracture (2) Elevated WBC count SNOMED Code(s): 770752286, 743892453 Code(s): D72.829 - ELEVATED WHITE BLOOD CELL COUNT, UNSPECIFIED Status: Acute Priority: Medium Qualifiers: Leukocytosis type: leukemoid reaction Qualified Code(s): D72.823 - Leukemoid reaction - Problem List Review Problem List Initiated/Reviewed/Updated: Yes - Plan Plan:: 62-year-old female with a closed left hip fracture. #1. Closed left hip fracture: -Patient will be taken to surgery this morning for a left hip hemiarthroplasty by Dr. Bernal, orthopedic surgeon. 2. Immunosuppression secondary to IV psoriasis medication, Stelara/leukocytosis: -Patient understands that she is at increased risk of infection following surgery secondary to this medication. She wishes to go ahead with the procedure. -I did speak with pharmacy and they state that the medication can have an effect on lowering the white blood cell count but only minimally. On admission her white blood cell count was 17,000 and has decreased to 11,000. Patient has remained afebrile. I believe her elevated white blood cell count secondary to the stress from her left hip fracture. <Gino Wells - Last Filed: 04/26/17 07:51> - Patient Data Vitals - Most Recent: Last Vital Signs Temp 36.2 C 04/14/17 13:16 Pulse 97 04/14/17 14:30 Resp 10 L 04/14/17 14:30 BP 105/60 04/14/17 14:30 Pulse Ox 94 L 04/14/17 14:30 I&O - Last 24 Hours: Intake & Output 04/14/17 04/14/17 04/14/17 06:59 14:59 22:59 Intake Total 50 3900 50 Output Total 250 650 Balance -200 3250 50 Lab Results Last 24 Hours: Laboratory Results - last 24 hr 04/14/17 04/14/17 04/14/17 Range/Units 01:24 01:24 01:24 WBC 17.05 H (4.0-11.0) K/uL RBC 4.83 (4.30-5.90) M/uL Hgb 14.5 (12.0-16.0) g/dL Hct 42.5 (36.0-46.0) % MCV 88.0 (80.0-98.0) fL MCH 30.0 (27.0-32.0) pg MCHC 34.1 (31.0-37.0) g/dL RDW Std Deviation 43.1 (28.0-62.0) fl RDW Coeff of Lachelle 14 (11.0-15.0) % Plt Count 238 (150-400) K/uL MPV 9.50 (7.40-12.00) fL Add Manual Diff YES Neutrophils % (Manual) 68 (48.0-80.0) % Band Neutrophils % 6 % Lymphocytes % (Manual) 23 (16.0-40.0) % Monocytes % (Manual) 3 (0.0-15.0) % Nucleated RBC % 0.0 /100WBC Absolute Seg Neuts 11.6 Band Neutrophils # 1.0 Lymphocytes # (Manual) 3.9 Monocytes # (Manual) 0.5 Nucleated RBCs # 0 K/uL INR 0.98 (0.86-1.11) Sodium (136-146) mmol/L Potassium (3.5-5.1) mmol/L Chloride (98-110) mmol/L Carbon Dioxide (21-31) mmol/L BUN (6.0-23.0) mg/dL Creatinine (0.6-1.5) mg/dL Est Cr Clr Drug Dosing mL/min Estimated GFR (MDRD) ml/min Glucose (60-110) mg/dL Calcium (8.8-10.8) mg/dL Blood Type A POSITIVE Antibody Screen NEGATIVE 04/14/17 04/14/17 Range/Units 01:24 06:25 WBC 11.50 H (4.0-11.0) K/uL RBC 4.58 (4.30-5.90) M/uL Hgb 13.6 (12.0-16.0) g/dL Hct 40.5 (36.0-46.0) % MCV 88.4 (80.0-98.0) fL MCH 29.7 (27.0-32.0) pg MCHC 33.6 (31.0-37.0) g/dL RDW Std Deviation 43.6 (28.0-62.0) fl RDW Coeff of Lachelle 14 (11.0-15.0) % Plt Count 215 (150-400) K/uL MPV 9.30 (7.40-12.00) fL Add Manual Diff Neutrophils % (Manual) 69 (48.0-80.0) % Band Neutrophils % 4 % Lymphocytes % (Manual) 21 (16.0-40.0) % Monocytes % (Manual) 6 (0.0-15.0) % Nucleated RBC % 0.0 /100WBC Absolute Seg Neuts 7.9 Band Neutrophils # 0.5 Lymphocytes # (Manual) 2.4 Monocytes # (Manual) 0.7 Nucleated RBCs # K/uL INR (0.86-1.11) Sodium 139 (136-146) mmol/L Potassium 3.8 (3.5-5.1) mmol/L Chloride 104 (98-110) mmol/L Carbon Dioxide 24 (21-31) mmol/L BUN 13 (6.0-23.0) mg/dL Creatinine 0.8 (0.6-1.5) mg/dL Est Cr Clr Drug Dosing 62.15 mL/min Estimated GFR (MDRD) > 60.0 ml/min Glucose 125 H (60-110) mg/dL Calcium 9.2 (8.8-10.8) mg/dL Blood Type Antibody Screen Med Orders - Current: Current Medications Hydrocodone Bitart/Acetaminophen ([place] 325-10 Mg) 1 - 2 tab PO Q4H PRN PRN Reason: Pain Docusate Sodium (Colace) 100 mg PO BID SHERRIE Fentanyl (Sublimaze) 50 mcg IVPUSH Q5M PRN PRN Reason: Pain (severe 7-10) Stop: 04/15/17 11:16 Fentanyl (Sublimaze) 50 mcg IVPUSH Q5M PRN PRN Reason: Pain (severe 7-10) Stop: 04/15/17 13:24 Lactated Ringer's (Ringers, Lactated) 1,000 mls @ 125 mls/hr IV ASDIRECTED [facility] Last Admin: 04/14/17 10:05 Dose: 125 mls/hr Clindamycin Phosphate 600 mg/ (Premix) 50 mls @ 100 mls/hr IV Q8H [facility] Stop: 04/15/17 02:29 Last Admin: 04/14/17 17:35 Dose: 100 mls/hr Morphine Sulfate (Morphine) 1 - 3 mg IVPUSH Q3H PRN PRN Reason: Pain Last Admin: 04/14/17 15:09 Dose: 2 mg Morphine Sulfate (Morphine) 1 - 3 mg IVPUSH Q3H PRN PRN Reason: Pain Last Admin: 04/14/17 17:33 Dose: 3 mg Ondansetron HCl (Zofran) 4 mg IVPUSH Q8H PRN PRN Reason: NAUSEA/VOMITING Last Admin: 04/14/17 17:42 Dose: 4 mg Rivaroxaban (Xarelto) 10 mg PO DAILY [facility] Discontinued Medications Ephedrine Sulfate (Ephedrine Sulfate) Confirm Administered Dose 50 mg .ROUTE .STK-MED ONE Stop: 04/14/17 10:50 Ephedrine Sulfate (Ephedrine Sulfate) Confirm Administered Dose 50 mg .ROUTE .STK-MED ONE Stop: 04/14/17 12:22 Fentanyl (Sublimaze) Confirm Administered Dose 100 mcg .ROUTE .STK-MED ONE Stop: 04/14/17 10:17 Fentanyl (Sublimaze) Confirm Administered Dose 250 mcg .ROUTE .STK-MED ONE Stop: 04/14/17 10:17 Glycopyrrolate () Confirm Administered Dose 1 mg .ROUTE .STK-MED ONE Stop: 04/14/17 10:19 Hydromorphone HCl (Dilaudid) 1 mg IM ONETIME ONE Stop: 04/13/17 21:30 Last Admin: 04/13/17 22:25 Dose: Not Given Hydromorphone HCl (Dilaudid) 1 mg IVPUSH ONETIME ONE Stop: 04/13/17 22:13 Last Admin: 04/14/17 00:14 Dose: 1 mg Hydromorphone HCl (Dilaudid) 1 mg IVPUSH ONETIME ONE Stop: 04/14/17 00:01 Last Admin: 04/14/17 00:14 Dose: Not Given Hydromorphone HCl (Dilaudid) Confirm Administered Dose 2 mg .ROUTE .STK-MED ONE Stop: 04/14/17 11:13 Hydromorphone HCl (Dilaudid) 0 mg IVPUSH ONETIME ONE Stop: 04/14/17 11:46 Clindamycin Phosphate 600 mg/ (Premix) 50 mls @ 100 mls/hr IV ONETIME ONE Stop: 04/14/17 01:59 Last Admin: 04/14/17 03:21 Dose: Not Given Clindamycin Phosphate 600 mg/ (Premix) 50 mls @ 100 mls/hr IV ONCALL ONE Stop: 04/14/17 13:29 Lidocaine (Xylocaine-Mpf 2%) Confirm Administered Dose 10 ml .ROUTE .STK-MED ONE Stop: 04/14/17 10:17 Lorazepam (Ativan) 0.5 mg IVPUSH ONETIME ONE Stop: 04/13/17 21:31 Last Admin: 04/13/17 22:03 Dose: 0.5 mg Midazolam HCl (Versed 1 Mg/Ml) Confirm Administered Dose 2 mg .ROUTE .STK-MED ONE Stop: 04/14/17 10:17 Morphine Sulfate (Morphine) Confirm Administered Dose 2 mg .ROUTE .STK-MED ONE Stop: 04/14/17 00:51 Last Admin: 04/14/17 00:53 Dose: 2 mg Neostigmine Methylsulfate (Neostigmine) Confirm Administered Dose 5 mg .ROUTE .STK-MED ONE Stop: 04/14/17 10:19 Ondansetron HCl (Zofran) Confirm Administered Dose 4 mg .ROUTE .STK-MED ONE Stop: 04/14/17 10:19 Propofol (Diprivan 20 Ml) Confirm Administered Dose 400 mg .ROUTE .STK-MED ONE Stop: 04/14/17 10:17 Propofol (Diprivan 20 Ml) Confirm Administered Dose 400 mg .ROUTE .STK-MED ONE Stop: 04/14/17 12:01 Rocuronium [place] (Zemuron) Confirm Administered Dose 100 mg .ROUTE .STK-MED ONE Stop: 04/14/17 10:19 - Problem List & Annotations (1) Immunosuppressed due to chemotherapy SNOMED Code(s): 866655238 Code(s): Z79.899 - OTHER BAKER TEST (CURRENT) DRUG THERAPY Status: Acute Priority: Medium (2) Elevated WBC count SNOMED Code(s): 329274371, 517840811 Code(s): D72.829 - ELEVATED WHITE BLOOD CELL COUNT, UNSPECIFIED Status: Acute Priority: Medium Qualifiers: Qualified Code(s): D72.823 - Leukemoid reaction (3) Closed left hip fracture SNOMED Code(s): 608829758 Code(s): S72.002A - FRACTURE OF UNSP PART OF NECK OF LEFT FEMUR, INIT Status: Acute Priority: High Onset Date: ~04/13/17 Qualifiers: Qualified Code(s): S72.002A - Fracture of unspecified part of neck of left femur, initial encounter for closed fracture - My Orders Last 24 Hours: My Active Orders 04/14/17 00:50 Vital Signs [RC] Q4H Resuscitation Status Routine 04/14/17 00:52 Oxygen Therapy [RC] PRN 04/14/17 00:54 Communication Order [RC] ROUTINE Intake and Output [RC] Q12H 04/14/17 00:56 Communication Order [RC] ROUTINE 04/14/17 01:19 Communication Order [RC] ROUTINE 04/14/17 10:07 Consult to Physician [CONS] Routine 04/14/17 10:08 Notify Provider Consults [RC] ASDIRECTED - Free Text/Narrative Note: Dr. Juan Wells MD notes: On the date of this note, I examined this patient and I agree with Dr. Amin's assessment and plan.
--- NOTE | 2017-04-14 13:15 | PCM.OPNOTE ---
- General Post-Op/Procedure Note Date of Surgery/Procedure: 04/14/17 Operative Procedure(s): L hip hemiarthroplasty Post-Op Diagnosis: L displaced femoral neck fracture Anesthesia Technique: General ET Tube Primary Surgeon: Oxana Bernal Scoop Operator: Nasima Bruno in mLs: 300 Condition: Good Free Text/Narrative:: Intake & Output 04/13/17 04/14/17 04/14/17 22:59 06:59 14:59 Intake Total 50 1000 Output Total 250 Balance -200 1000 #[id number]
--- NOTE | 2017-04-14 14:21 | OR ---
SURGEON: Oxana Bernal MD DATE OF PROCEDURE: 04/14/2017 PREOPERATIVE DIAGNOSIS: Left femoral neck fracture, displaced. POSTOPERATIVE DIAGNOSIS: Left femoral neck fracture, displaced. PROCEDURE: Left hip hemiarthroplasty. HIGH SCHOOL SOCIAL STUDIES TEACHER: Nasima Bruno PA-C. ANESTHESIA: General. ESTIMATED BLOOD LOSS: 300 mL. TOURNIQUET TIME: 0 minutes. COMPLICATIONS: None. DVT PROPHYLAXIS: PAS boot to the nonoperative leg. IMPLANTS USED: Secur-Fit hip stem, size 9 with a 43 mm bipolar universal head and +0 C taper head. BRIEF HISTORY: Anderson is a 62-year-old female, who is visiting the area. She sustained a fall off a curb after eating last evening. She complained of immediate left hip pain. She was seen in the emergency room were x-rays confirmed a displaced fracture of the left femoral neck. At that time, she was admitted by the hospitalist. She was cleared for surgical treatment. I recommended that she undergo a left hip hemiarthroplasty. The risks and goals of the procedure were discussed with the patient and were documented preoperatively. She agreed to proceed. DESCRIPTION OF PROCEDURE: The patient was properly identified and brought to the operating room. General anesthesia was administered on her hospital bed. After adequate anesthesia was obtained, she was transferred to the operating room table. She was placed in a lateral decubitus position. An axillary roll was placed. Care was taken to pad all bony prominences. A pegboard was used to secure her torso and pelvis. The left lower extremity was then prepped in standard fashion using ChloraPrep solution. It was then sterilely draped. A time-out was performed to ensure correct site and procedure. Preoperative antibiotics were given. The surgical site had been marked preoperatively. An incision was made slightly posterior over the greater trochanter. Subcutaneous tissues were incised down to the level of the fascia. The fascia was then incised. A Charnley retractor was used to retract the fascia. The hip was then internally rotated and external rotators were located posteriorly. The piriformis was identified. This was taken off the greater trochanter in a subperiosteal manner and marked. The capsule was then identified. This was incised in a T-type fashion. Sutures were used to john the edges of the capsule, which were used throughout the case for retraction. The fracture hematoma was then evacuated. A small neck cut was made, approximately 1 fingerbreadth proximal to the lesser trochanter. The residual bone was removed. The head was then removed without difficulty. It was sized on the back table. Trial heads were then used to gauge the appropriate size. It was felt that a size 43 head was appropriate. I then turned my attention to the femur. A box cutting osteotome was used along the lateral portion of the canal. A canal-finding reamer was then used to gain access to the femoral canal. The canal was then sequentially reamed up to a size 9. The canal was then sequentially broached. Once we got to a size 9, it was felt that we had adequate fit and there was no rotational instability. The neck and 43 mm head were then assembled and placed onto the trial broach. The hip was reduced. She appeared somewhat tight in extension. She was stable with flexion, adduction, and internal rotation to nearly 45 degrees. Intraoperative x-rays were obtained which showed good fit of the femoral prosthesis, however, with her being tight in extension, I felt that we should try to decrease the length. The hip was then re-dislocated and the components were removed. The 9 broach was removed. I used the 8 broach again to deepen the canal and again the 9 broach was placed. This allowed us to seat the broach a bit further distally. The lowest neck length available was a +0 and so we could not use a minus. The +0 was again placed and the hip was reduced. This had a much better feel with extension. She did not appear tight with full extension. She was again taken through a range of motion with flexion, adduction, and internal rotation, and remained quite stable. We checked the repeat x-ray which showed that the leg lengths appeared to be fairly symmetrical. The trial components were then removed. The canal was copiously irrigated. The acetabulum was also inspected, which did not show significant degenerative changes. No soft tissue was noted within the acetabulum. The #9 stem was then placed without difficulty. This was malleted into position and appeared to have good rotational stability. The head and bipolar component were also placed. The hip was then reduced. There was no change in the stability. The wound was then copiously irrigated with saline solution using a Pulsavac supervisor refining. The capsule was reapproximated and closed. The piriformis was attached to the greater trochanter in subperiosteal fashion. The fascial layer was closed with #1 Vicryl and the subcutaneous tissues were closed with 2-0 Vicryl. The skin was closed with yessica. Xeroform gauze was placed over the wound and a bulky dressing was applied. She was turned and placed onto the operating room table. A hip abduction pillow was placed. She was awakened from her anesthetic and brought to recovery room in stable condition. All needle and sponge counts were correct. TINA / LAY /[id number]
--- NOTE | 2017-04-14 15:23 | CR ---
EXAMINATION: Pelvis HISTORY: Arthroplasty COMPARISON: 04/13/2017 TECHNIQUE: 2 images provided FINDINGS/IMPRESSION: Operative control films demonstrate trial total hip hardware projecting over th e left hip.
--- NOTE | 2017-04-14 16:25 | PCM.POSTAN ---
POST ANESTHESIA ASSESSMENT - MENTAL STATUS Mental Status: Oriented Free Text/Narrative:: Sleepy but responds to verbal stimulus. - RESPIRATORY Respiratory Status: Respiratory Rate WNL, Airway Patent, O2 Saturation Stable, Supplemental Oxygen - CARDIOVASCULAR CV Status: Pulse Rate WNL, Blood Pressure Stable - GASTROINTESTINAL GI Status: No Symptoms - POST OP HYDRATION Hydration Status: Adequate & Stable
--- NOTE | 2017-04-14 16:37 | PCM48HPAN ---
Post Anesthesia Note - EVALUATION WITHIN 48HRS OF ANESTHETIC Vital Signs in Normal Range: Yes Patient Participated in Evaluation: Yes Respiratory Function Stable: Yes Airway Patent: Yes Cardiovascular Function Stable: Yes Hydration Status Stable: Yes Pain Control Satisfactory: Yes Nausea and Vomiting Control Satisfactory: Yes Mental Status Recovered: Yes - COMMENTS/OBSERVATIONS Free Text/Narrative:: Pt doing well post surgery. Awake with at bedside. Denies any nausea at this time. Does state that she has some burning sensation at the incision site. Encouraged to stay on top of her pain and call her nurse for pain medications.
[2017-04-14] MEDS: Morphine 10 MG/ML Syringe IVPUSH PRN ×2 (17:33→20:56)
[2017-04-14] MEDS: Clindamycin Phosphate in D5W 600 MG in Premix Bag 50 BAG IV SCH ×2 (17:35)
[2017-04-14] MEDS: Ondansetron 4 MG/2 ML SDV IVPUSH PRN (17:42)
--- NOTE | 2017-04-14 19:06 | CR ---
EXAM DATE: 04/14/17 PATIENT'S AGE: 62 Patient: AYO ROSA Facility: [place], [place] Site . Site : 1955 Study: XRay Extremity Left [id number] 11:22:31 PM Ordering Physician: Orlando Parisi Final Report: Indication: Fall Technique: Two views left hip Comparison: None Findings/impression: There is a fracture through the left femoral neck with associated shortening of the neck. Remainder of the osseous structures appear intact. Dictated by Shagufta Saeed MD @ Apr 13 2017 11:36PM (Electronic Signature) Report Signed by Proxy. NELI
[2017-04-14] MEDS: Acetaminophen/HYDROcodone 325-10 MG Tab PO PRN (19:49)
[2017-04-14] MEDS: Docusate Sodium 100 MG Cap PO SCH (19:59)
[2017-04-15] MEDS: Acetaminophen/HYDROcodone 325-10 MG Tab PO PRN ×4 (00:40→12:38)
[2017-04-15] MEDS: Morphine 4 MG/ML Syringe IVPUSH PRN (00:41)
[2017-04-15] MEDS: Ondansetron 4 MG/2 ML SDV IVPUSH PRN (00:43)
[2017-04-15] MEDS: Clindamycin Phosphate in D5W 600 MG in Premix Bag 50 BAG IV SCH ×2 (02:11)
[2017-04-15] MEDS: Morphine 10 MG/ML Syringe IVPUSH PRN (04:49)
[2017-04-15 07:00] LABS: CHLORIDE,CL 103 mmol/L (98-110); SODIUM,NA 136 mmol/L (136-146)
[2017-04-15] MEDS ORDERED: Rivaroxaban 10 MG Tab PO SCH (09:00)
[2017-04-15] MEDS: Docusate Sodium 100 MG Cap PO SCH (09:14)
[2017-04-15 09:38] VITALS: BP 96/63
[2017-04-15] MEDS ORDERED: Sodium Chloride 0.9% 10 ML Syringe FLUSH PRN (10:13)
[2017-04-15] MEDS ORDERED: Sodium Chloride 0.9% 2.5 ML Syringe FLUSH PRN (10:13)
--- NOTE | 2017-04-15 10:13 | PCM.SURGPN ---
- General Info Date of Service: 04/15/17 Date of Surgery/Procedure: 04/14/17 POD#: 1 Functional Status: Reports: Pain Controlled, Tolerating Diet, Ambulating - Review of Systems General: Reports: No Symptoms Pulmonary: Reports: No Symptoms Cardiovascular: Reports: No Symptoms Gastrointestinal: Reports: No Symptoms Systems Review Comment:: pt resting comfortably in bed pain controlled with [place] 10/325 and IV moprhine has been OOB would like d/ch today - Patient Data Vitals - Most Recent: Last Vital Signs Temp 99.6 F 04/15/17 09:37 Pulse 107 H 04/15/17 09:37 Resp 16 04/15/17 09:37 BP 96/63 04/15/17 09:37 Pulse Ox 95 04/15/17 09:37 Weight - Most Recent: 66.5 kg I&O - Last 24 Hours: Intake & Output 04/14/17 04/15/17 04/15/17 22:59 06:59 14:59 Intake Total 50 2550 Output Total 2400 Balance 50 150 Lab Results Last 24 Hrs: Laboratory Results - last 24 hr 04/15/17 04/15/17 Range/Units 06:01 06:01 WBC 8.99 (4.0-11.0) K/uL RBC 3.58 L (4.30-5.90) M/uL Hgb 10.5 L (12.0-16.0) g/dL Hct 32.2 L (36.0-46.0) % MCV 89.9 (80.0-98.0) fL MCH 29.3 (27.0-32.0) pg MCHC 32.6 (31.0-37.0) g/dL RDW Std Deviation 45.3 (28.0-62.0) fl RDW Coeff of Lachelle 14 (11.0-15.0) % Plt Count 180 (150-400) K/uL MPV 9.70 (7.40-12.00) fL Neut % (Auto) 66.7 (48.0-80.0) % Lymph % (Auto) 20.6 (16.0-40.0) % [place] % (Auto) 12.2 (0.0-15.0) % Eos % (Auto) 0.3 (0.0-7.0) % Baso % (Auto) 0.2 (0.0-1.5) % Neut # (Auto) 6.0 H (1.4-5.7) K/uL Lymph # (Auto) 1.9 (0.6-2.4) K/uL [place] # (Auto) 1.1 H (0.0-0.8) K/uL Eos # (Auto) 0.0 (0.0-0.7) K/uL Baso # (Auto) 0.0 (0.0-0.1) K/uL Nucleated RBC % 0.0 /100WBC Nucleated RBCs # 0 K/uL Sodium 136 (136-146) mmol/L Potassium 4.0 (3.5-5.1) mmol/L Chloride 103 (98-110) mmol/L Carbon Dioxide 28 (21-31) mmol/L BUN 5 L (6.0-23.0) mg/dL Creatinine 0.7 (0.6-1.5) mg/dL Est Cr Clr Drug Dosing 71.03 mL/min Estimated GFR (MDRD) > 60.0 ml/min Glucose 121 H (60-110) mg/dL Calcium 7.8 L (8.8-10.8) mg/dL Med Orders - Current: Current Medications Hydrocodone Bitart/Acetaminophen ([place] 325-10 Mg) 1 - 2 tab PO Q4H PRN PRN Reason: Pain Last Admin: 04/15/17 04:48 Dose: 2 tab Docusate Sodium (Colace) 100 mg PO BID [facility] Last Admin: 04/15/17 09:14 Dose: 100 mg Fentanyl (Sublimaze) 50 mcg IVPUSH Q5M PRN PRN Reason: Pain (severe 7-10) Stop: 04/15/17 11:16 Fentanyl (Sublimaze) 50 mcg IVPUSH Q5M PRN PRN Reason: Pain (severe 7-10) Stop: 04/15/17 13:24 Lactated Ringer's (Ringers, Lactated) 1,000 mls @ 125 mls/hr IV ASDIRECTED [facility] Last Admin: 04/14/17 23:48 Dose: 125 mls/hr Morphine Sulfate (Morphine) 1 - 3 mg IVPUSH Q3H PRN PRN Reason: Pain Last Admin: 04/15/17 00:41 Dose: 3 mg Morphine Sulfate (Morphine) 1 - 3 mg IVPUSH Q3H PRN PRN Reason: Pain Last Admin: 04/15/17 04:49 Dose: 3 mg Ondansetron HCl (Zofran) 4 mg IVPUSH Q8H PRN PRN Reason: NAUSEA/VOMITING Last Admin: 04/15/17 00:43 Dose: 4 mg Rivaroxaban (Xarelto) 10 mg PO DAILY [facility]RIE Last Admin: 04/15/17 09:14 Dose: 10 mg Discontinued Medications Ephedrine Sulfate (Ephedrine Sulfate) Confirm Administered Dose 50 mg .ROUTE .STK-MED ONE Stop: 04/14/17 10:50 Ephedrine Sulfate (Ephedrine Sulfate) Confirm Administered Dose 50 mg .ROUTE .STK-MED ONE Stop: 04/14/17 12:22 Fentanyl (Sublimaze) Confirm Administered Dose 100 mcg .ROUTE .STK-MED ONE Stop: 04/14/17 10:17 Fentanyl (Sublimaze) Confirm Administered Dose 250 mcg .ROUTE .STK-MED ONE Stop: 04/14/17 10:17 Glycopyrrolate () Confirm Administered Dose 1 mg .ROUTE .STK-MED ONE Stop: 04/14/17 10:19 Hydromorphone HCl (Dilaudid) 1 mg IM ONETIME ONE Stop: 04/13/17 21:30 Last Admin: 04/13/17 22:25 Dose: Not Given Hydromorphone HCl (Dilaudid) 1 mg IVPUSH ONETIME ONE Stop: 04/13/17 22:13 Last Admin: 04/14/17 00:14 Dose: 1 mg Hydromorphone HCl (Dilaudid) 1 mg IVPUSH ONETIME ONE Stop: 04/14/17 00:01 Last Admin: 04/14/17 00:14 Dose: Not Given Hydromorphone HCl (Dilaudid) Confirm Administered Dose 2 mg .ROUTE .STK-MED ONE Stop: 04/14/17 11:13 Hydromorphone HCl (Dilaudid) 0 mg IVPUSH ONETIME ONE Stop: 04/14/17 11:46 Last Admin: 04/14/17 19:54 Dose: Not Given Clindamycin Phosphate 600 mg/ (Premix) 50 mls @ 100 mls/hr IV ONETIME ONE Stop: 04/14/17 01:59 Last Admin: 04/14/17 03:21 Dose: Not Given Clindamycin Phosphate 600 mg/ (Premix) 50 mls @ 100 mls/hr IV ONCALL ONE Stop: 04/14/17 13:29 Last Admin: 04/14/17 19:54 Dose: Not Given Clindamycin Phosphate 600 mg/ (Premix) 50 mls @ 100 mls/hr IV Q8H SHERRIE Stop: 04/15/17 02:29 Last Admin: 04/15/17 02:11 Dose: 100 mls/hr Lidocaine (Xylocaine-Mpf 2%) Confirm Administered Dose 10 ml .ROUTE .STK-MED ONE Stop: 04/14/17 10:17 Lorazepam (Ativan) 0.5 mg IVPUSH ONETIME ONE Stop: 04/13/17 21:31 Last Admin: 04/13/17 22:03 Dose: 0.5 mg Midazolam HCl (Versed 1 Mg/Ml) Confirm Administered Dose 2 mg .ROUTE .STK-MED ONE Stop: 04/14/17 10:17 Morphine Sulfate (Morphine) Confirm Administered Dose 2 mg .ROUTE .STK-MED ONE Stop: 04/14/17 00:51 Last Admin: 04/14/17 00:53 Dose: 2 mg Neostigmine Methylsulfate (Neostigmine) Confirm Administered Dose 5 mg .ROUTE .STK-MED ONE Stop: 04/14/17 10:19 Ondansetron HCl (Zofran) Confirm Administered Dose 4 mg .ROUTE .STK-MED ONE Stop: 04/14/17 10:19 Propofol (Diprivan 20 Ml) Confirm Administered Dose 400 mg .ROUTE .STK-MED ONE Stop: 04/14/17 10:17 Propofol (Diprivan 20 Ml) Confirm Administered Dose 400 mg .ROUTE .STK-MED ONE Stop: 04/14/17 12:01 Rocuronium [place] (Zemuron) Confirm Administered Dose 100 mg .ROUTE .STK-MED ONE Stop: 04/14/17 10:19 - Exam Wound/Incisions: Healing Well. No: Drainage, Erythema General: Alert, Oriented Cardiovascular: Regular Rate, Regular Rhythm Extremities: Other (L hip - posterior incision clean/dry. yessica in place. mild swelling and ecchymosis. thigh soft. at/ehl/gastroc 5/5, dp 2+, sensation intact distally. ) Physical Findings Comment:: vss, afeb (bp 100s/50s) hgb 10.5 - Problem List Review Problem List Initiated/Reviewed/Updated: Yes - My Orders Last 24 Hours: Active Orders 24 hr Category Date Time Status Notify Provider Consults [RC] ASDIRECTED Care 04/14/17 10:08 Active Ready for Discharge [RC] PER UNIT ROUTINE Care 04/15/17 10:09 Ordered Consult to Physical Therapy [PT Evaluation and Cons 04/15/17 09:43 Active Treatment] [CONS] Routine Consult to Physician [CONS] Routine Cons 04/14/17 10:07 Active Regular Diet [DIET] Diet 04/14/17 Dinner Active Pelvis 1V or 2V [CR] Routine Exams 04/14/17 13:01 Taken Acetaminophen/HYDROcodone [[place] 325-10 MG] Med 04/14/17 13:00 Active 1 - 2 tab PO Q4H PRN Docusate Sodium [Colace] Med 04/14/17 21:00 Active 100 mg PO BID Morphine Med 04/14/17 13:00 Active 1 - 3 mg IVPUSH Q3H PRN Rivaroxaban [Xarelto] Med 04/15/17 09:00 Active 10 mg PO DAILY fentaNYL [Sublimaze] Med 04/14/17 11:16 Active 50 mcg IVPUSH Q5M PRN fentaNYL [Sublimaze] Med 04/14/17 13:24 Active 50 mcg IVPUSH Q5M PRN Medication Orders Hydrocodone Bitart/Acetaminophen ([place] 325-10 Mg) 1 - 2 tab PO Q4H PRN PRN Reason: Pain Last Admin: 04/15/17 04:48 Dose: 2 tab Admin: 04/15/17 00:40 Dose: 2 tab Admin: 04/14/17 19:49 Dose: 2 tab Docusate Sodium (Colace) 100 mg PO BID [facility] Last Admin: 04/15/17 09:14 Dose: 100 mg Admin: 04/14/17 19:59 Dose: 100 mg Fentanyl (Sublimaze) 50 mcg IVPUSH Q5M PRN PRN Reason: Pain (severe 7-10) Stop: 04/15/17 11:16 Fentanyl (Sublimaze) 50 mcg IVPUSH Q5M PRN PRN Reason: Pain (severe 7-10) Stop: 04/15/17 13:24 Lactated Ringer's (Ringers, Lactated) 1,000 mls @ 125 mls/hr IV ASDIRECTED [facility] Last Admin: 04/14/17 23:48 Dose: 125 mls/hr Infusion: 04/14/17 18:05 Dose: 125 mls/hr Admin: 04/14/17 10:05 Dose: 125 mls/hr Infusion: 04/14/17 09:49 Dose: 125 mls/hr Admin: 04/14/17 01:49 Dose: 125 mls/hr Morphine Sulfate (Morphine) 1 - 3 mg IVPUSH Q3H PRN PRN Reason: Pain Last Admin: 04/15/17 00:41 Dose: 3 mg Admin: 04/14/17 15:09 Dose: 2 mg Admin: 04/14/17 07:53 Dose: 3 mg Admin: 04/14/17 04:44 Dose: 3 mg Admin: 04/14/17 01:53 Dose: 2 mg Morphine Sulfate (Morphine) 1 - 3 mg IVPUSH Q3H PRN PRN Reason: Pain Last Admin: 04/15/17 04:49 Dose: 3 mg Admin: 04/14/17 20:56 Dose: 3 mg Admin: 04/14/17 17:33 Dose: 3 mg Ondansetron HCl (Zofran) 4 mg IVPUSH Q8H PRN PRN Reason: NAUSEA/VOMITING Last Admin: 04/15/17 00:43 Dose: 4 mg Admin: 04/14/17 17:42 Dose: 4 mg Rivaroxaban (Xarelto) 10 mg PO DAILY [facility] Last Admin: 04/15/17 09:14 Dose: 10 mg - Assessment Assessment (Free Text/Narrative):: POD#1 L hip hemiarthroplasty acute posthemorrhagic anemai - Plan Plan (Free Text/Narrative):: dressing changed to Aquacel DC IV fluids DC martin posterior hip precautions discussed pt/ are traveling to [place] for the next week, then home to [place] advised frequent ambulation, BANDAR hose, and Xarelto pt will follow-up in [place] the week of 04/24 if questions or concerns prior to that follow-up, call the clinic okay to discharge once pt has voided
--- NOTE | 2017-04-15 12:35 | PCM.DCSUM1 ---
<Shane Amin - Last Filed: 04/15/17 12:29> Discharge Summary - Hospital Course Free Text/Narrative:: Admission diagnoses: #1. Left femoral neck fracture Discharge diagnoses: #1. Left femoral neck fracture repaired with left hip hemiarthroplasty 62-year-old female that was admitted with a left femoral neck fracture. The neck fracture was surgically repaired by Dr. Ana Bernal, orthopedic surgeon, via left hip hemiarthroplasty. Patient tolerated the procedure well. She was working with physical therapy soon after the procedure and did well with this. Pain was adequately controlled with as needed pain medications. Patient did have an elevated white blood cell count at the time of admission but this was thought to be secondary to the recent hip fracture. At the time of discharge, the patient denied any chest pain, palpitations, shortness of breath wheezing, cough, abdominal pain, nausea vomiting, constipation, diarrhea, headache, dizziness, fever. She was tolerating oral intake and voiding appropriately. - Discharge Data Discharge Date: 04/15/17 Discharge Disposition: Home, Self-Care 01 Condition: Good - Discharge Diagnosis/Problem(s) (1) Closed left hip fracture SNOMED Code(s): 085175946 ICD Code: S72.002A - FRACTURE OF UNSP PART OF NECK OF LEFT FEMUR, INIT Status: Acute Priority: High Current Visit: Yes Onset Date: ~04/13/17 (2) Elevated WBC count SNOMED Code(s): 020755788, 877262266 ICD Code: D72.829 - ELEVATED WHITE BLOOD CELL COUNT, UNSPECIFIED Status: Acute Priority: Medium Current Visit: Yes - Patient Summary/Data Operative Procedure(s) Performed: L hip hemiarthroplasty Consults: Consultations 04/14/17 10:07 Consult to Physician [CONS] Routine 04/15/17 09:43 Consult to Physical Therapy [PT Evaluation and Treatment] [CONS] Routine - Patient Instructions Diet: Usual Diet as Tolerated Activity: Apply Ice, Full Weight Bearing, No Strenuous Activities Activity, Other: See posterior hip precautions. Driving: Do Not Drive Showering/Bathing: May Shower Showering/Bathing, Other: Okay to shower over Aquacel dressing. Wound/Incision Care: Do NOT Change Dressing Notify Provider of: Fever, Increased Pain, Swelling and Redness, Drainage, Nausea and/or Vomiting Other/Special Instructions: Follow-up with Orthopedics in [place] the week of . Use wheeled walker for ambulation assistance. Use hip adductor pillow while in bed. BADNAR burgos, on in AM, off in PM. - Discharge Plan Prescriptions/Med Rec: Acetaminophen/HYDROcodone [[place] 325-10 MG] 1 - 2 tab PO Q4H PRN #80 tablet PRN Reason: Pain Docusate Sodium [Colace] 100 mg PO BID #60 cap Rivaroxaban [Xarelto] 10 mg PO DAILY #28 tablet Home Medications: Home Meds Ustekinumab [Stelara] 04/14/17 [History] Acetaminophen/HYDROcodone [[place] 325-10 MG] 1 - 2 tab PO Q4H PRN #80 tablet 01/25 [Rx] Docusate Sodium [Colace] 100 mg PO BID #60 cap 04/15/17 [Rx] Rivaroxaban [Xarelto] 10 mg PO DAILY #28 tablet 04/15/17 [Rx] Other Amb Orders: Hip Precautions Posterior [OM.PC] Location: Determined By Patient Patient Handouts: Acetaminophen; Hydrocodone tablets or capsules, Rivaroxaban oral tablets, Docusate capsules, Hip Arthroscopy, Care After Referrals: Nasima Bruno PA [Physician Sc[employer] Kettle Tender] - - Discharge Summary/Plan Comment DC Time >30 min.: No Discharge Summary/Plan Comment: Admission diagnoses: #1. Left femoral neck fracture Discharge diagnoses: #1. Left femoral neck fracture repaired with left hip hemiarthroplasty 62-year-old female that was admitted with a left femoral neck fracture. The neck fracture was surgically repaired by Dr. Ana Bernal, orthopedic surgeon, via left hip hemiarthroplasty. Patient tolerated the procedure well. She was working with physical therapy soon after the procedure and did well with this. Pain was adequately controlled with as needed pain medications. At the time of discharge, the patient denied any chest pain, palpitations, shortness of breath wheezing, cough, abdominal pain, nausea vomiting, constipation, diarrhea, headache, dizziness, fever. She was tolerating oral intake and voiding appropriately. Discharge plan: #1. Patient will followup with the orthopedist in [place] where the patient is originally from the week of April 24. #2. Prescriptions given from orthopedics for [place]on every 4 hours (80 tabs) and Xarelto (28 tabs). #3. Instructions per orthopedics are to use a walker when ambulating, use BANDAR hose in the morning and take off in the evening and use hip adductor pillow when lying down. - Patient Data Vitals - Most Recent: Last Vital Signs Temp 99.6 F 04/15/17 09:37 Pulse 107 H 04/15/17 09:37 Resp 16 04/15/17 09:37 BP 96/63 04/15/17 09:37 Pulse Ox 95 04/15/17 09:37 Weight - Most Recent: 66.5 kg I&O - Last 24 hours: Intake & Output 04/14/17 04/15/17 04/15/17 22:59 06:59 14:59 Intake Total 50 2550 Output Total 2400 Balance 50 150 Lab Results - Last 24 hrs: Laboratory Results - last 24 hr 04/15/17 04/15/17 Range/Units 06:01 06:01 WBC 8.99 (4.0-11.0) K/uL RBC 3.58 L (4.30-5.90) M/uL Hgb 10.5 L (12.0-16.0) g/dL Hct 32.2 L (36.0-46.0) % MCV 89.9 (80.0-98.0) fL MCH 29.3 (27.0-32.0) pg MCHC 32.6 (31.0-37.0) g/dL RDW Std Deviation 45.3 (28.0-62.0) fl RDW Coeff of Lachelle 14 (11.0-15.0) % Plt Count 180 (150-400) K/uL MPV 9.70 (7.40-12.00) fL Neut % (Auto) 66.7 (48.0-80.0) % Lymph % (Auto) 20.6 (16.0-40.0) % [place] % (Auto) 12.2 (0.0-15.0) % Eos % (Auto) 0.3 (0.0-7.0) % Baso % (Auto) 0.2 (0.0-1.5) % Neut # (Auto) 6.0 H (1.4-5.7) K/uL Lymph # (Auto) 1.9 (0.6-2.4) K/uL [place] # (Auto) 1.1 H (0.0-0.8) K/uL Eos # (Auto) 0.0 (0.0-0.7) K/uL Baso # (Auto) 0.0 (0.0-0.1) K/uL Nucleated RBC % 0.0 /100WBC Nucleated RBCs # 0 K/uL Sodium 136 (136-146) mmol/L Potassium 4.0 (3.5-5.1) mmol/L Chloride 103 (98-110) mmol/L Carbon Dioxide 28 (21-31) mmol/L BUN 5 L (6.0-23.0) mg/dL Creatinine 0.7 (0.6-1.5) mg/dL Est Cr Clr Drug Dosing 71.03 mL/min Estimated GFR (MDRD) > 60.0 ml/min Glucose 121 H (60-110) mg/dL Calcium 7.8 L (8.8-10.8) mg/dL Med Orders - Current: Current Medications Hydrocodone Bitart/Acetaminophen ([place] 325-10 Mg) 1 - 2 tab PO Q4H PRN PRN Reason: Pain Last Admin: 04/15/17 08:45 Dose: 2 tab Docusate Sodium (Colace) 100 mg PO BID [facility] Last Admin: 04/15/17 09:14 Dose: 100 mg Fentanyl (Sublimaze) 50 mcg IVPUSH Q5M PRN PRN Reason: Pain (severe 7-10) Stop: 04/15/17 13:24 Lactated Ringer's (Ringers, Lactated) 1,000 mls @ 125 mls/hr IV ASDIRECTED [facility] Last Admin: 04/14/17 23:48 Dose: 125 mls/hr Morphine Sulfate (Morphine) 1 - 3 mg IVPUSH Q3H PRN PRN Reason: Pain Last Admin: 04/15/17 00:41 Dose: 3 mg Morphine Sulfate (Morphine) 1 - 3 mg IVPUSH Q3H PRN PRN Reason: Pain Last Admin: 04/15/17 04:49 Dose: 3 mg Ondansetron HCl (Zofran) 4 mg IVPUSH Q8H PRN PRN Reason: NAUSEA/VOMITING Last Admin: 04/15/17 00:43 Dose: 4 mg Rivaroxaban (Xarelto) 10 mg PO DAILY [facility] Last Admin: 04/15/17 09:14 Dose: 10 mg Sodium Chloride (Saline Flush) 10 ml FLUSH ASDIRECTED PRN PRN Reason: Keep Vein Open Sodium Chloride (Saline Flush) 2.5 ml FLUSH ASDIRECTED PRN PRN Reason: Keep Vein Open Discontinued Medications Ephedrine Sulfate (Ephedrine Sulfate) Confirm Administered Dose 50 mg .ROUTE .STK-MED ONE Stop: 04/14/17 10:50 Ephedrine Sulfate (Ephedrine Sulfate) Confirm Administered Dose 50 mg .ROUTE .STK-MED ONE Stop: 04/14/17 12:22 Fentanyl (Sublimaze) Confirm Administered Dose 100 mcg .ROUTE .STK-MED ONE Stop: 04/14/17 10:17 Fentanyl (Sublimaze) Confirm Administered Dose 250 mcg .ROUTE .STK-MED ONE Stop: 04/14/17 10:17 Fentanyl (Sublimaze) 50 mcg IVPUSH Q5M PRN PRN Reason: Pain (severe 7-10) Stop: 04/15/17 11:16 Glycopyrrolate () Confirm Administered Dose 1 mg .ROUTE .STK-MED ONE Stop: 04/14/17 10:19 Hydromorphone HCl (Dilaudid) 1 mg IM ONETIME ONE Stop: 04/13/17 21:30 Last Admin: 04/13/17 22:25 Dose: Not Given Hydromorphone HCl (Dilaudid) 1 mg IVPUSH ONETIME ONE Stop: 04/13/17 22:13 Last Admin: 04/14/17 00:14 Dose: 1 mg Hydromorphone HCl (Dilaudid) 1 mg IVPUSH ONETIME ONE Stop: 04/14/17 00:01 Last Admin: 04/14/17 00:14 Dose: Not Given Hydromorphone HCl (Dilaudid) Confirm Administered Dose 2 mg .ROUTE .STK-MED ONE Stop: 04/14/17 11:13 Hydromorphone HCl (Dilaudid) 0 mg IVPUSH ONETIME ONE Stop: 04/14/17 11:46 Last Admin: 04/14/17 19:54 Dose: Not Given Clindamycin Phosphate 600 mg/ (Premix) 50 mls @ 100 mls/hr IV ONETIME ONE Stop: 04/14/17 01:59 Last Admin: 04/14/17 03:21 Dose: Not Given Clindamycin Phosphate 600 mg/ (Premix) 50 mls @ 100 mls/hr IV ONCALL ONE Stop: 04/14/17 13:29 Last Admin: 04/14/17 19:54 Dose: Not Given Clindamycin Phosphate 600 mg/ (Premix) 50 mls @ 100 mls/hr IV Q8H [facility] Stop: 04/15/17 02:29 Last Admin: 04/15/17 02:11 Dose: 100 mls/hr Lidocaine (Xylocaine-Mpf 2%) Confirm Administered Dose 10 ml .ROUTE .STK-MED ONE Stop: 04/14/17 10:17 Lorazepam (Ativan) 0.5 mg IVPUSH ONETIME ONE Stop: 04/13/17 21:31 Last Admin: 04/13/17 22:03 Dose: 0.5 mg Midazolam HCl (Versed 1 Mg/Ml) Confirm Administered Dose 2 mg .ROUTE .STK-MED ONE Stop: 04/14/17 10:17 Morphine Sulfate (Morphine) Confirm Administered Dose 2 mg .ROUTE .STK-MED ONE Stop: 04/14/17 00:51 Last Admin: 04/14/17 00:53 Dose: 2 mg Neostigmine Methylsulfate (Neostigmine) Confirm Administered Dose 5 mg .ROUTE .STK-MED ONE Stop: 04/14/17 10:19 Ondansetron HCl (Zofran) Confirm Administered Dose 4 mg .ROUTE .STK-MED ONE Stop: 04/14/17 10:19 Propofol (Diprivan 20 Ml) Confirm Administered Dose 400 mg .ROUTE .STK-MED ONE Stop: 04/14/17 10:17 Propofol (Diprivan 20 Ml) Confirm Administered Dose 400 mg .ROUTE .STK-MED ONE Stop: 04/14/17 12:01 Rocuronium [place] (Zemuron) Confirm Administered Dose 100 mg .ROUTE .STK-MED ONE Stop: 04/14/17 10:19 *Q Meaningful Use (DIS) - VTE *Q VTE Criteria *Q: - Stroke *Q Stroke Criteria *Q: - AMI *Q AMI Criteria *Q: <Gino Wells - Last Filed: 04/15/17 13:30> Discharge Summary - Discharge Diagnosis/Problem(s) (1) Immunosuppressed due to chemotherapy SNOMED Code(s): 750854069 ICD Code: Z79.899 - OTHER DOCTOR OF NAPRAPATHY (CURRENT) DRUG THERAPY Status: Acute Priority: Medium Current Visit: Yes (2) Elevated WBC count SNOMED Code(s): 260581776, 997851589 ICD Code: D72.829 - ELEVATED WHITE BLOOD CELL COUNT, UNSPECIFIED Status: Acute Priority: Medium Current Visit: Yes Qualifiers: Qualified Code(s): D72.823 - Leukemoid reaction (3) Closed left hip fracture SNOMED Code(s): 595526937 ICD Code: S72.002A - FRACTURE OF UNSP PART OF NECK OF LEFT FEMUR, INIT Status: Acute Priority: High Current Visit: Yes Onset Date: ~04/13/17 Qualifiers: Qualified Code(s): S72.002A - Fracture of unspecified part of neck of left femur, initial encounter for closed fracture - Patient Summary/Data Consults: Consultations 04/14/17 10:07 Consult to Physician [CONS] Routine 04/15/17 09:43 Consult to Physical Therapy [PT Evaluation and Treatment] [CONS] Routine - Patient Data Vitals - Most Recent: Last Vital Signs Temp 37.6 C 04/15/17 09:37 Pulse 107 H 04/15/17 09:37 Resp 16 04/15/17 09:37 BP 96/63 04/15/17 09:37 Pulse Ox 95 04/15/17 09:37 I&O - Last 24 hours: Intake & Output 04/14/17 04/15/17 04/15/17 22:59 06:59 14:59 Intake Total 50 2550 Output Total 2400 Balance 50 150 Lab Results - Last 24 hrs: Laboratory Results - last 24 hr 04/15/17 04/15/17 Range/Units 06:01 06:01 WBC 8.99 (4.0-11.0) K/uL RBC 3.58 L (4.30-5.90) M/uL Hgb 10.5 L (12.0-16.0) g/dL Hct 32.2 L (36.0-46.0) % MCV 89.9 (80.0-98.0) fL MCH 29.3 (27.0-32.0) pg MCHC 32.6 (31.0-37.0) g/dL RDW Std Deviation 45.3 (28.0-62.0) fl RDW Coeff of Lachelle 14 (11.0-15.0) % Plt Count 180 (150-400) K/uL MPV 9.70 (7.40-12.00) fL Neut % (Auto) 66.7 (48.0-80.0) % Lymph % (Auto) 20.6 (16.0-40.0) % [place] % (Auto) 12.2 (0.0-15.0) % Eos % (Auto) 0.3 (0.0-7.0) % Baso % (Auto) 0.2 (0.0-1.5) % Neut # (Auto) 6.0 H (1.4-5.7) K/uL Lymph # (Auto) 1.9 (0.6-2.4) K/uL [place] # (Auto) 1.1 H (0.0-0.8) K/uL Eos # (Auto) 0.0 (0.0-0.7) K/uL Baso # (Auto) 0.0 (0.0-0.1) K/uL Nucleated RBC % 0.0 /100WBC Nucleated RBCs # 0 K/uL Sodium 136 (136-146) mmol/L Potassium 4.0 (3.5-5.1) mmol/L Chloride 103 (98-110) mmol/L Carbon Dioxide 28 (21-31) mmol/L BUN 5 L (6.0-23.0) mg/dL Creatinine 0.7 (0.6-1.5) mg/dL Est Cr Clr Drug Dosing 71.03 mL/min Estimated GFR (MDRD) > 60.0 ml/min Glucose 121 H (60-110) mg/dL Calcium 7.8 L (8.8-10.8) mg/dL Med Orders - Current: Current Medications Hydrocodone Bitart/Acetaminophen ([place] 325-10 Mg) 1 - 2 tab PO Q4H PRN PRN Reason: Pain Last Admin: 04/15/17 12:38 Dose: 2 tab Docusate Sodium (Colace) 100 mg PO BID [facility] Last Admin: 04/15/17 09:14 Dose: 100 mg Fentanyl (Sublimaze) 50 mcg IVPUSH Q5M PRN PRN Reason: Pain (severe 7-10) Stop: 04/15/17 13:24 Lactated Ringer's (Ringers, Lactated) 1,000 mls @ 125 mls/hr IV ASDIRECTED [facility] Last Admin: 04/14/17 23:48 Dose: 125 mls/hr Morphine Sulfate (Morphine) 1 - 3 mg IVPUSH Q3H PRN PRN Reason: Pain Last Admin: 04/15/17 00:41 Dose: 3 mg Morphine Sulfate (Morphine) 1 - 3 mg IVPUSH Q3H PRN PRN Reason: Pain Last Admin: 04/15/17 04:49 Dose: 3 mg Ondansetron HCl (Zofran) 4 mg IVPUSH Q8H PRN PRN Reason: NAUSEA/VOMITING Last Admin: 04/15/17 00:43 Dose: 4 mg Rivaroxaban (Xarelto) 10 mg PO DAILY [facility] Last Admin: 04/15/17 09:14 Dose: 10 mg Sodium Chloride (Saline Flush) 10 ml FLUSH ASDIRECTED PRN PRN Reason: Keep Vein Open Sodium Chloride (Saline Flush) 2.5 ml FLUSH ASDIRECTED PRN PRN Reason: Keep Vein Open Discontinued Medications Ephedrine Sulfate (Ephedrine Sulfate) Confirm Administered Dose 50 mg .ROUTE .STK-MED ONE Stop: 04/14/17 10:50 Ephedrine Sulfate (Ephedrine Sulfate) Confirm Administered Dose 50 mg .ROUTE .STK-MED ONE Stop: 04/14/17 12:22 Fentanyl (Sublimaze) Confirm Administered Dose 100 mcg .ROUTE .STK-MED ONE Stop: 04/14/17 10:17 Fentanyl (Sublimaze) Confirm Administered Dose 250 mcg .ROUTE .STK-MED ONE Stop: 04/14/17 10:17 Fentanyl (Sublimaze) 50 mcg IVPUSH Q5M PRN PRN Reason: Pain (severe 7-10) Stop: 04/15/17 11:16 Glycopyrrolate () Confirm Administered Dose 1 mg .ROUTE .STK-MED ONE Stop: 04/14/17 10:19 Hydromorphone HCl (Dilaudid) 1 mg IM ONETIME ONE Stop: 04/13/17 21:30 Last Admin: 04/13/17 22:25 Dose: Not Given Hydromorphone HCl (Dilaudid) 1 mg IVPUSH ONETIME ONE Stop: 04/13/17 22:13 Last Admin: 04/14/17 00:14 Dose: 1 mg Hydromorphone HCl (Dilaudid) 1 mg IVPUSH ONETIME ONE Stop: 04/14/17 00:01 Last Admin: 04/14/17 00:14 Dose: Not Given Hydromorphone HCl (Dilaudid) Confirm Administered Dose 2 mg .ROUTE .STK-MED ONE Stop: 04/14/17 11:13 Hydromorphone HCl (Dilaudid) 0 mg IVPUSH ONETIME ONE Stop: 04/14/17 11:46 Last Admin: 04/14/17 19:54 Dose: Not Given Clindamycin Phosphate 600 mg/ (Premix) 50 mls @ 100 mls/hr IV ONETIME ONE Stop: 04/14/17 01:59 Last Admin: 04/14/17 03:21 Dose: Not Given Clindamycin Phosphate 600 mg/ (Premix) 50 mls @ 100 mls/hr IV ONCALL ONE Stop: 04/14/17 13:29 Last Admin: 04/14/17 19:54 Dose: Not Given Clindamycin Phosphate 600 mg/ (Premix) 50 mls @ 100 mls/hr IV Q8H [facility] Stop: 04/15/17 02:29 Last Admin: 04/15/17 02:11 Dose: 100 mls/hr Lidocaine (Xylocaine-Mpf 2%) Confirm Administered Dose 10 ml .ROUTE .STK-MED ONE Stop: 04/14/17 10:17 Lorazepam (Ativan) 0.5 mg IVPUSH ONETIME ONE Stop: 04/13/17 21:31 Last Admin: 04/13/17 22:03 Dose: 0.5 mg Midazolam HCl (Versed 1 Mg/Ml) Confirm Administered Dose 2 mg .ROUTE .STK-MED ONE Stop: 04/14/17 10:17 Morphine Sulfate (Morphine) Confirm Administered Dose 2 mg .ROUTE .STK-MED ONE Stop: 04/14/17 00:51 Last Admin: 04/14/17 00:53 Dose: 2 mg Neostigmine Methylsulfate (Neostigmine) Confirm Administered Dose 5 mg .ROUTE .STK-MED ONE Stop: 04/14/17 10:19 Ondansetron HCl (Zofran) Confirm Administered Dose 4 mg .ROUTE .STK-MED ONE Stop: 04/14/17 10:19 Propofol (Diprivan 20 Ml) Confirm Administered Dose 400 mg .ROUTE .STK-MED ONE Stop: 04/14/17 10:17 Propofol (Diprivan 20 Ml) Confirm Administered Dose 400 mg .ROUTE .STK-MED ONE Stop: 04/14/17 12:01 Rocuronium [place] (Zemuron) Confirm Administered Dose 100 mg .ROUTE .STK-MED ONE Stop: 04/14/17 10:19 *Q Meaningful Use (DIS) - VTE *Q VTE Criteria *Q: - Stroke *Q Stroke Criteria *Q: - AMI *Q AMI Criteria *Q: - Free Text/Narrative Note: Dr. Juan Wells notes: I have observed this patient, and have discussed her condition with the physical therapist, who believes she has the ability to get up the 3 steps to her camper. I have looked at her current data and have discussed her care with Dr. Amin. I agree with his assessments and his plan to dsicharge her.
--- NOTE | 2017-04-17 09:08 | CR ---
EXAMINATION: Pelvis and left hip HISTORY: Postoperative COMPARISON: Same day TECHNIQUE: AP pelvis and 2 views of the left hip FINDINGS: Left total hip hardware is demonstrated in good position and alignment. Remaining osseous structures appear intact. Bone mineralization appears normal to minimally osteopenic. The iliopectin eal lines are intact. IMPRESSION: Left total hip hardware in good position.
--- NOTE | 2017-04-17 09:48 | CR ---
EXAM DATE: 04/14/17 PATIENT'S AGE: 62 Patient: AYO ROSA Facility: [facility] Site . Site : [id number] Study: XRay-Pelvis [id number]/3/2017 11:22:51 PM Ordering Physician: Orlando Parisi Final Report: Indication: Fall Technique: Frontal view pelvis Comparison: None Findings/impression: There is a mildly displaced fracture through the left femoral neck. The pelvic ring is intact. Signed by: Shagufta Saeed MD @04/13/2017 11:36:01 PM INGRID/Dictated by: Shagufta Saeed MD @ 04/13/2017 11:35:00 PM Signed by: Shagufta Saeed MD @04/14/2017 11:00:36 PM (Electronic Signature) Report Signed by Proxy. MTD
== END 2017-04-15 13:34 | disposition home or self-care (01) | DRG 301 ==
LOC: MW.ED 21:03 → UNDOADMIN 04-14 00:17 → MW.MS 04-14 00:17
PROVIDERS: ADMIT Family Medicine; ATTEND Family Medicine
PROC: 0SRS0JA Replacement of Left Hip Joint, Femoral Surface with Synthetic Substitute, Uncemented, Open Approach (ICD-10-PCS; principal; 2017-04-14)
DX: S72.002A Fracture of unspecified part of neck of left femur, initial encounter for closed fracture (principal); W01.0XXA Fall on same level from slipping, tripping and stumbling without subsequent striking against object, initial encounter; Y93.89 Activity, other specified; Y92.89 Other specified places as the place of occurrence of the external cause; D72.829 Elevated white blood cell count, unspecified; Z79.899 Other long term (current) drug therapy; L40.9 Psoriasis, unspecified; Z88.0 Allergy status to penicillin; Z88.8 Allergy status to other drugs, medicaments and biological substances
CPT/HCPCS: 01214; 36415; 71010; 71010-26; 72170; 72170-26; 73502-26-LT; 73502-LT; 80048; 85025; 85027; 85610; 86850; 86900; 86901; 88305; 88311; 93005; 96374; 96375; 97116-GP; 97161-GP; 99285; 99285-25; A9270-GY; C1776; C9399; J1170; J2060; J2250; J2270; J2405; J2704; J3010; J7120